=== PATIENT | female | born 1955 | race Hispanic/Latino ===

== ENCOUNTER 2017-07-23 09:35 | Inpatient (IN) | payer BC ==
[~2017-07-23] VITALS: Ht 147.3 cm; Wt 65.0 kg
[2017-07-23] VITALS (9 sets, daily range): BP systolic 99–127; BP diastolic 63–72
[2017-07-23] MEDS ORDERED: PHENYLEPHRINE HCL 10 MG/ML 1ML VIAL IV ONE (12:00)
[2017-07-23] MEDS ORDERED: CALCIUM CHLORIDE 100 MG/ML 10 ML SYG IVP ONE (12:00)
[2017-07-23] MEDS ORDERED: ALBUMIN (HUMAN) 25% 50 ML IV ONE (12:00)
[2017-07-23] MEDS ORDERED: HEPARIN SODIUM 1000UNIT/ML 10ML VIAL IV ONE (12:00)
[2017-07-23] MEDS ORDERED: MANNITOL 25% 50ML VIAL IV ONE (12:00)
[2017-07-23] MEDS ORDERED: SODIUM BICARB 8.4% 50ML SYRINGE IVP ONE (12:00)
[2017-07-23] MEDS ORDERED: HEPARIN SODIUM 10000 UNIT/ML 1ML VIAL IJ ONE (12:00)
[2017-07-23] MEDS ORDERED: NITROGLYCERIN 50 MG/D5% WATER 1 BOT ONE (12:52)
[2017-07-23] MEDS ORDERED: METF500T6 PO (12:59)
[2017-07-23] MEDS ORDERED: LOSA100T29 PO (12:59)
[2017-07-23] MEDS ORDERED: ATOR40TA69 PO (12:59)
[2017-07-23] MEDS ORDERED: ESOM40CA54 PO (12:59)
[2017-07-23] MEDS ORDERED: LORA10CA9 PO (12:59)
[2017-07-23] MEDS ORDERED: LIDOCAINE HCL 2% 20ML ONE (13:29)
[2017-07-23] MEDS ORDERED: IOPAMIDOL-370 75 ML VIAL IV ONE (13:29)
[2017-07-23] MEDS ORDERED: IOPAMIDOL-370 100 ML VIAL IV ONE (13:29)
[2017-07-23] MEDS ORDERED: NITROGLYCERIN 0.4 MG SL TAB SL PRN (13:30)
[2017-07-23] MEDS ORDERED: ALBU8.5H8 IH (14:08)
[2017-07-23] MEDS ORDERED: BUDE10.2 IH ×2 (14:08)
[2017-07-23] MEDS ORDERED: ACETAMINOPHEN 325 MG TAB ONE (15:58)
[2017-07-23] MEDS ORDERED: ALPRAZOLAM 0.25 MG TABLET PO PRN (17:15)
[2017-07-23 17:33] LABS: BASOPHILS % (AUTO) 0.8 % (0.0-5.0); EOSINOPHILS % (AUTO) 1.6 % (0.0-8.0); HEMATOCRIT 35.9 % (36-48); LYMPHOCYTES % (AUTO) 27.6 % (21.0-51.0); MEAN CORPUSCULAR HEMOGLOBIN 30.3 pg (27.0-33.0); MEAN CORPUSCULAR HGB CONC 34.3 g/dL (32.0-36.0); MEAN CORPUSCULAR VOLUME 88.3 fL (79-99); MONOCYTES % (AUTO) 6.4 % (3.0-13.0); NEUTROPHILS % (AUTO) 63.6 % (40.0-77.0); PLATELET COUNT (AUTO) 304 K/uL (130-400); RED BLOOD CELL COUNT(AUTO) 4.06 MIL/uL (4.00-5.50)
[2017-07-23 17:42] LABS: CREATININE 0.7 mg/dL (0.5-1.5); POTASSIUM 3.7 mmol/L (3.5-5.1)
[2017-07-23 17:45] LABS: INR 0.93 (0.85-1.15); PARTIAL THROMBOPLASTIN TIME 23.7 SEC (26.3-35.5); PROTHROMBIN TIME 9.8 SEC (9.6-11.6)
[2017-07-23 17:47] LABS: HEMOGLOBIN A1C 7.5 % (4.0-6.0)
[2017-07-23] MEDS: LISINOPRIL 2.5 MG TABLET PO SCH (19:56)
[2017-07-23] MEDS: METOPROLOL TARTRATE 25 MG TAB PO SCH (19:57)
[2017-07-23] MEDS ORDERED: ATORVASTATIN CALCIUM 20 MG TABLET PO SCH (21:00)
[2017-07-24] VITALS (9 sets, daily range): BP systolic 105–179; BP diastolic 57–87
[2017-07-24] MEDS: SODIUM CHLORIDE 0.9% 1000ML 1,000 ML IV SCH ×2 (00:23→11:05)
[2017-07-24] MEDS ORDERED: MORPHINE SULFATE 2 MG/ML 1ML SYG IV PRN (00:30)
[2017-07-24] MEDS ORDERED: HYDRALAZINE HCL 20 MG/ML VIAL IV PRN (00:30)
[2017-07-24] MEDS ORDERED: ONDANSETRON HCL 4 MG/2 ML VIAL IV PRN ×2 (00:30→14:00)
[2017-07-24] MEDS ORDERED: ACETAMINOPHEN 325 MG TAB PO PRN (00:30)
[2017-07-24] MEDS ORDERED: ACETAMINOPHEN 325 MG TAB ONE (00:31)
[2017-07-24] MEDS ORDERED: SODIUM CHLORIDE 0.9% 1000ML 1,000 ML IV ONE (00:31)
[2017-07-24 04:42] LABS: HEMATOCRIT 34.1 % (36-48); MEAN CORPUSCULAR HGB CONC 34.9 g/dL (32.0-36.0); MEAN CORPUSCULAR VOLUME 88.9 fL (79-99); PLATELET COUNT (AUTO) 298 K/uL (130-400); RED BLOOD CELL COUNT(AUTO) 3.83 MIL/uL (4.00-5.50); RED CELL DISTRIBUTION WIDTH 13.2 % (11.0-15.5); WHITE BLOOD COUNT (AUTO) 8.2 K/uL (4.8-10.8)
[2017-07-24 04:45] LABS: CREATININE 0.7 mg/dL (0.5-1.5); POTASSIUM 3.9 mmol/L (3.5-5.1)
[2017-07-24] MEDS ORDERED: ISOSORBIDE MONO 30MG TAB SR PO SCH (09:00)
[2017-07-24] MEDS ORDERED: ASPIRIN 81MG TAB.CHEW PO SCH (09:00)
[2017-07-24] MEDS: METOPROLOL TARTRATE 25 MG TAB PO SCH (09:30)
[2017-07-24] MEDS: LISINOPRIL 2.5 MG TABLET PO SCH (09:30)
[2017-07-24 09:38] LABS: ABG BASE EXCESS 0.2 mmol/L (-2.0-3.0); ABG HCO3 23.2 mmol/L (21.0-28.0); ABG OXYGEN SATURATION 97.7 % (95.0-99.0); ABG PCO2 33 mmHg (32-45)
[2017-07-24] MEDS ORDERED: BACITRACIN 50,000 UNIT VIAL ONE (09:46)
[2017-07-24] MEDS ORDERED: OCTYL 2-CYANOACRYLATE 1 EACH TP ONE (09:46)
[2017-07-24] MEDS ORDERED: PAPAVERINE HCL 30 MG/ML 2ML VIAL ONE (09:46)
[2017-07-24] MEDS ORDERED: CEFUROXIME 1.5GM+NS 100ML 100 ML IV SCH ×2 (10:15→22:00)
[2017-07-24] MEDS ORDERED: WATER FOR INJECTION,STERILE 20 ML VIAL IJ SCH ×2 (10:15→17:00)
[2017-07-24] MEDS: CEFUROXIME SODIUM 1.5 GM VIAL IVP SCH ×3 (10:15→22:02)
[2017-07-24] MEDS ORDERED: ROCURONIUM BROMIDE 10MG/1ML 5ML VL ONE ×4 (10:22→17:16)
[2017-07-24] MEDS ORDERED: EPINEPHRINE 1 MG/ML AMPULE ONE ×3 (10:22→18:33)
[2017-07-24] MEDS ORDERED: GLYCOPYRROLATE 0.2 MG/ML 5 ML VIAL ONE (10:22)
[2017-07-24] MEDS ORDERED: MILRINONE-D5W 20 MG/100 ML 0 ML IV ONE (10:22)
[2017-07-24] MEDS ORDERED: PROTAMINE SULFATE 10 MG/ML 25ML VIAL IV ONE (10:22)
[2017-07-24] MEDS ORDERED: PROPOFOL 10 MG/ML 20ML VIAL IV ONE (10:22)
[2017-07-24] MEDS ORDERED: LIDOCAINE PF 2% 5ML ABBOJECT ONE ×4 (10:22→15:07)
[2017-07-24] MEDS ORDERED: NOREPINEPHRINE BITARTRATE 1 MG/1 ML ML IV ONE ×3 (10:22→18:12)
[2017-07-24] MEDS ORDERED: FENTANYL CITRATE PF 50 MCG/1 ML 20ML VIAL IJ ONE (10:22)
[2017-07-24] MEDS ORDERED: CALCIUM CHLORIDE 100 MG/ML 10 ML SYG IVP ONE ×11 (10:22→21:38)
[2017-07-24] MEDS ORDERED: AMIODARONE HCL 900MG/18ML IV ONE ×2 (10:22→15:08)
[2017-07-24] MEDS ORDERED: AMINOCAPROIC ACID 250 MG/ML 20 ML VIAL IV ONE (10:22)
[2017-07-24] MEDS ORDERED: HEPARIN SODIUM 1000UNIT/ML 10ML VIAL ONE ×3 (10:22→15:07)
[2017-07-24] MEDS ORDERED: ESMOLOL HCL 10 MG/ML 10 ML VIAL ONE ×2 (10:22→15:07)
[2017-07-24] MEDS ORDERED: MIDAZOLAM HCL 1 MG/ML 5ML VIAL ONE ×2 (10:23→14:48)
[2017-07-24] MEDS ORDERED: NITROGLYCERIN 50 MG/D5% WATER 1 BOT ONE (10:35)
[2017-07-24] MEDS ORDERED: THROMBIN-JMI 5000 UNIT/VIAL TP ONE (11:10)
[2017-07-24 11:45] LABS: ABG BASE EXCESS -1.4 mmol/L (-2.0-3.0); ABG HCO3 22.1 mmol/L (21.0-28.0); ABG PCO2 33 mmHg (32-45)
[2017-07-24] MEDS ORDERED: SODIUM BICARB 50MEQ 50ML VIAL ONE ×11 (12:19→22:49)
[2017-07-24 12:46] LABS: ABG BASE EXCESS 9.2 mmol/L (-2.0-3.0); ABG HCO3 31.2 mmol/L (21.0-28.0); ABG OXYGEN SATURATION 98.3 % (95.0-99.0); ABG PCO2 33 mmHg (32-45)
[2017-07-24 13:00] LABS: ABG HCO3 22.9 mmol/L (21.0-28.0); ABG PCO2 30 mmHg (32-45)
[2017-07-24 13:36] LABS: ABG BASE EXCESS -5.4 mmol/L (-2.0-3.0); ABG HCO3 17.9 mmol/L (21.0-28.0); ABG OXYGEN SATURATION 98.5 % (95.0-99.0); ABG PCO2 28 mmHg (32-45)
[2017-07-24] MEDS ORDERED: SODIUM CHLORIDE 0.9% 250 ML IV PRN (14:00)
[2017-07-24] MEDS ORDERED: MORPHINE SULFATE 4 MG/1ML SYG IV PRN (14:00)
[2017-07-24] MEDS ORDERED: ACETAMINOPHEN 650 MG SUPPOSITORY RC PRN (14:00)
[2017-07-24] MEDS ORDERED: NICARDIPINE HCL 100 MG in SODIUM CHLORIDE 0.9% 60 ML IV PRN (14:00)
[2017-07-24] MEDS ORDERED: SODIUM CHLORIDE 0.9% 10 ML VIAL IVP PRN (14:00)
[2017-07-24] MEDS ORDERED: NOREPINEPHRINE 4MG/NS 250ML 250 ML IV PRN (14:00)
[2017-07-24] MEDS ORDERED: PROPOFOL 1000 MG/100 ML 100 ML IV PRN (14:00)
[2017-07-24] MEDS ORDERED: AMINOCAPROIC ACID 15,000 MG in SODIUM CHLORIDE 0.9% 250 ML IV SCH (14:00)
[2017-07-24] MEDS ORDERED: NITROGLYCERIN 50 MG/D5% WATER 250 BOT IV SCH (14:00)
[2017-07-24] MEDS ORDERED: INSULIN REGULAR, HUMAN 3ML 100 UNIT in SODIUM CHLORIDE 0.9% 99 ML IV SCH ×2 (14:00)
[2017-07-24] MEDS ORDERED: SODIUM CHLORIDE 0.9% 1000ML 1,000 ML IV SCH (14:00)
[2017-07-24] MEDS ORDERED: EPINEPHRINE 2 MG in SODIUM CHLORIDE 0.9% 250 ML IV PRN (14:00)
[2017-07-24] MEDS ORDERED: ALBUMIN (HUMAN) 5% 250 ML IV PRN (14:00)
[2017-07-24] MEDS ORDERED: GLUCAGON 1MG KIT 1 MG ML IM PRN (14:00)
[2017-07-24] MEDS ORDERED: POTASSIUM PHOS 15 mMOL+NS250ML 250 ML IV PRN (14:00)
[2017-07-24 14:22] LABS: ABG BASE EXCESS -0.8 mmol/L (-2.0-3.0); ABG HCO3 21.9 mmol/L (21.0-28.0); ABG OXYGEN SATURATION 98.4 % (95.0-99.0); ABG PCO2 30 mmHg (32-45)
[2017-07-24] MEDS ORDERED: ATROPINE SULFATE 0.1 MG/ML 10 ML SYG IVP ONE (14:38)
[2017-07-24] MEDS ORDERED: SODIUM BICARB 8.4% 50ML SYRINGE ONE ×2 (14:44→16:29)
[2017-07-24 14:45] LABS: ABG BASE EXCESS -4.8 mmol/L (-2.0-3.0); ABG HCO3 18.3 mmol/L (21.0-28.0); ABG OXYGEN SATURATION 97.8 % (95.0-99.0); ABG PCO2 28 mmHg (32-45)
[2017-07-24] MEDS ORDERED: EPINEPHRINE 1 MG/ML 30ML VIAL IJ ONE (14:47)
[2017-07-24] MEDS ORDERED: CEFUROXIME SODIUM 1.5 GM VIAL ONE (14:50)
[2017-07-24 14:59] LABS: ABG BASE EXCESS -0.1 mmol/L (-2.0-3.0); ABG HCO3 20.4 mmol/L (21.0-28.0); ABG PCO2 19 mmHg (32-45)
[2017-07-24 15:50] LABS: ABG BASE EXCESS -9.6 mmol/L (-2.0-3.0); ABG HCO3 16.1 mmol/L (21.0-28.0); ABG OXYGEN SATURATION 98.6 % (95.0-99.0); ABG PCO2 35 mmHg (32-45)
[2017-07-24 15:57] LABS: ABG BASE EXCESS 2.8 mmol/L (-2.0-3.0); ABG OXYGEN SATURATION 98.3 % (95.0-99.0); ABG PCO2 35 mmHg (32-45)
[2017-07-24] MEDS ORDERED: MAGNESIUM SULFATE 1 GM/2 ML VIAL ONE (15:59)
[2017-07-24] MEDS ORDERED: AMIODARONE HCL 900 MG in DEXTROSE 5%-WATER 500 ML IV SCH (16:00)
[2017-07-24] MEDS ORDERED: ALBUMIN (HUMAN) 5% 250 ML IV ONE ×2 (16:12→17:04)
[2017-07-24] MEDS ORDERED: LIDOCAINE 2G/250ML 250 ML IV ONE (16:15)
[2017-07-24 16:25] LABS: ABG BASE EXCESS -4.9 mmol/L (-2.0-3.0); ABG HCO3 18.9 mmol/L (21.0-28.0); ABG OXYGEN SATURATION 98.3 % (95.0-99.0); ABG PCO2 31 mmHg (32-45)
[2017-07-24 16:55] LABS: ABG BASE EXCESS 7.4 mmol/L (-2.0-3.0); ABG HCO3 31.3 mmol/L (21.0-28.0); ABG OXYGEN SATURATION 98.4 % (95.0-99.0); ABG PCO2 41 mmHg (32-45)
[2017-07-24] MEDS ORDERED: PIPERACILLIN SODIUM/TAZOBACTAM 3.375 GM VIAL IV SCH (17:00)
[2017-07-24] MEDS ORDERED: EPHEDRINE SULFATE 50 MG/ML AMPULE ONE (17:04)
[2017-07-24] MEDS ORDERED: FUROSEMIDE 10 MG/ML 4ML VIAL ONE (17:12)
[2017-07-24 17:45] LABS: ABG HCO3 18.9 mmol/L (21.0-28.0); ABG OXYGEN SATURATION 87.3 % (95.0-99.0); ABG PCO2 40 mmHg (32-45)
[2017-07-24] MEDS ORDERED: VASOPRESSIN 125 UNITS in SODIUM CHLORIDE 0.9% 250 ML IV PRN (17:45)
[2017-07-24] MEDS: POTASSIUM CHLORIDE 20MEQ/100ML 100 ML IV PRN ×5 (18:02→23:44)
[2017-07-24 18:14] LABS: HEMATOCRIT 25.1 % (36-48); MEAN CORPUSCULAR HEMOGLOBIN 30.1 pg (27.0-33.0); MEAN CORPUSCULAR HGB CONC 34.2 g/dL (32.0-36.0); NUCLEATED RED BLOOD CELLS 0.1 % (0.0-0.19); RED BLOOD CELL COUNT(AUTO) 2.85 MIL/uL (4.00-5.50); RED CELL DISTRIBUTION WIDTH 13.3 % (11.0-15.5); WHITE BLOOD COUNT (AUTO) 22.8 K/uL (4.8-10.8)
[2017-07-24 18:18] LABS: CREATININE 0.8 mg/dL (0.5-1.5); GLOMERULAR FILTR. RATE CALC 77 mL/min (>60); GLUCOSE,RANDOM 116 mg/dL (70-105); PHOSPHORUS 5.6 mg/dL (2.5-4.9); POTASSIUM 3.2 mmol/L (3.5-5.1); UREA NITROGEN, BLOOD 11 mg/dL (7-18)
[2017-07-24 18:22] LABS: ABG BASE EXCESS -4.2 mmol/L (-2.0-3.0); ABG HCO3 20.9 mmol/L (21.0-28.0); ABG OXYGEN SATURATION 82.7 % (95.0-99.0); ABG PCO2 38 mmHg (32-45)
[2017-07-24 18:23] LABS: SODIUM SERUM > 185 mmol/L (136-145)
[2017-07-24 18:26] LABS: CHLORIDE 126 mmol/L (101-111)
[2017-07-24 18:38] LABS: CARBON DIOXIDE 64 mmol/L (21-32)
[2017-07-24] MEDS ORDERED: CALCIUM CHLORIDE 100 MG/ML 10 ML SYG IVP STA (18:43)
[2017-07-24 18:47] LABS: ABG BASE EXCESS 7.2 mmol/L (-2.0-3.0); ABG HCO3 32.1 mmol/L (21.0-28.0); ABG PCO2 49 mmHg (32-45)
[2017-07-24 18:54] LABS: PLATELET COUNT (AUTO) 58 K/uL (130-400)
[2017-07-24 19:00] LABS: ABG BASE EXCESS 1.1 mmol/L (-2.0-3.0); ABG HCO3 26.7 mmol/L (21.0-28.0); ABG PCO2 49 mmHg (32-45)
[2017-07-24] MEDS: SODIUM BICARB 8.4% 50ML SYRINGE IV PRN ×3 (19:12→19:40)
[2017-07-24] MEDS ORDERED: EPHEDRINE-NS PF 50MG/5ML SYRINGE IV STA (19:16)
[2017-07-24 19:25] LABS: ABG BASE EXCESS -2.1 mmol/L (-2.0-3.0); ABG HCO3 21.5 mmol/L (21.0-28.0); ABG OXYGEN SATURATION 98.3 % (95.0-99.0); ABG PCO2 31 mmHg (32-45)
[2017-07-24 20:12] LABS: ABG BASE EXCESS -1.7 mmol/L (-2.0-3.0); ABG PCO2 27 mmHg (32-45)
[2017-07-24] MEDS: SODIUM CHLORIDE 0.9% 500ML 500 ML IV SCH (20:27)
[2017-07-24 20:48] LABS: ABG BASE EXCESS -1.7 mmol/L (-2.0-3.0); ABG HCO3 21.9 mmol/L (21.0-28.0); ABG OXYGEN SATURATION 93.7 % (95.0-99.0); ABG PCO2 33 mmHg (32-45)
[2017-07-24 20:55] LABS: INR 1.61 (0.85-1.15); PARTIAL THROMBOPLASTIN TIME 50.5 SEC (26.3-35.5); PROTHROMBIN TIME 16.7 SEC (9.6-11.6)
[2017-07-24] MEDS: EPINEPHRINE 8 MG in SODIUM CHLORIDE 0.9% 250 ML IV PRN (21:14)
[2017-07-24] MEDS ORDERED: HYDROCORTISONE SOD SUCCINATE 100 MG/2 ML VIAL IV SCH (21:30)
[2017-07-24] MEDS ORDERED: SODIUM BICARB 8.4% 50ML SYRING 200 MEQ in DEXTROSE 5%-WATER 950 ML IVP SCH (21:30)
[2017-07-24] MEDS ORDERED: PHARMACY COMMUNICATION MISC SCH ×2 (21:30→21:45)
[2017-07-24 21:37] LABS: ABG BASE EXCESS 0.6 mmol/L (-2.0-3.0); ABG HCO3 23.6 mmol/L (21.0-28.0); ABG PCO2 32 mmHg (32-45)
[2017-07-24] MEDS ORDERED: SODIUM CHLORIDE 0.9% IVP SCH (22:15)
[2017-07-24] MEDS ORDERED: CALCIUM CHLORIDE IVP SCH (22:15)
[2017-07-24 22:48] LABS: ABG BASE EXCESS -1.6 mmol/L (-2.0-3.0); ABG HCO3 21.8 mmol/L (21.0-28.0); ABG PCO2 32 mmHg (32-45)
[2017-07-24 23:24] LABS: ABG HCO3 26.6 mmol/L (21.0-28.0); ABG OXYGEN SATURATION 97.8 % (95.0-99.0); ABG PCO2 31 mmHg (32-45)
[2017-07-25] VITALS (24 sets, daily range): BP systolic 75–147; BP diastolic 48–81
[2017-07-25 00:03] LABS: ABG BASE EXCESS 0.4 mmol/L (-2.0-3.0); ABG HCO3 23.5 mmol/L (21.0-28.0); ABG OXYGEN SATURATION 97.3 % (95.0-99.0); ABG PCO2 31 mmHg (32-45)
[2017-07-25 00:30] LABS: MEAN CORPUSCULAR HEMOGLOBIN 28.6 pg (27.0-33.0); MEAN CORPUSCULAR VOLUME 84.1 fL (79-99); NUCLEATED RED BLOOD CELLS 0.2 % (0.0-0.19); PLATELET COUNT (AUTO) 85 K/uL (130-400); RED BLOOD CELL COUNT(AUTO) 2.21 MIL/uL (4.00-5.50); RED CELL DISTRIBUTION WIDTH 15.1 % (11.0-15.5); WHITE BLOOD COUNT (AUTO) 13.9 K/uL (4.8-10.8)
[2017-07-25 00:34] LABS: ABG BASE EXCESS -0.7 mmol/L (-2.0-3.0); ABG HCO3 22.9 mmol/L (21.0-28.0); ABG OXYGEN SATURATION 96.9 % (95.0-99.0); ABG PCO2 32 mmHg (32-45)
[2017-07-25] MEDS: SODIUM BICARB 8.4% 50ML SYRINGE IV PRN ×5 (00:34→14:22)
[2017-07-25 00:35] LABS: HEMATOCRIT 18.6 % (36-48)
[2017-07-25 00:40] LABS: CREATININE 1.6 mg/dL (0.5-1.5); INR 1.39 (0.85-1.15); PARTIAL THROMBOPLASTIN TIME 47.3 SEC (26.3-35.5); POTASSIUM 3.8 mmol/L (3.5-5.1); PROTHROMBIN TIME 14.5 SEC (9.6-11.6)
[2017-07-25 01:10] LABS: ABG BASE EXCESS 0.8 mmol/L (-2.0-3.0); ABG HCO3 24.2 mmol/L (21.0-28.0); ABG OXYGEN SATURATION 97.1 % (95.0-99.0); ABG PCO2 33 mmHg (32-45)
[2017-07-25] MEDS: POTASSIUM CHLORIDE 20MEQ/100ML 100 ML IV PRN ×8 (01:17→16:06)
[2017-07-25] MEDS: NOREPINEPHRINE BITARTRATE 8 MG in SODIUM CHLORIDE 0.9% 250 ML IV SCH (01:51)
[2017-07-25 02:04] LABS: ABG BASE EXCESS -1.6 mmol/L (-2.0-3.0); ABG HCO3 22.2 mmol/L (21.0-28.0); ABG OXYGEN SATURATION 97.4 % (95.0-99.0); ABG PCO2 34 mmHg (32-45)
[2017-07-25 03:02] LABS: ABG BASE EXCESS 1.6 mmol/L (-2.0-3.0); ABG HCO3 24.8 mmol/L (21.0-28.0); ABG OXYGEN SATURATION 97.9 % (95.0-99.0); ABG PCO2 33 mmHg (32-45)
[2017-07-25 03:55] LABS: ABG BASE EXCESS -1.2 mmol/L (-2.0-3.0); ABG HCO3 22.1 mmol/L (21.0-28.0); ABG OXYGEN SATURATION 97.5 % (95.0-99.0); ABG PCO2 31 mmHg (32-45)
[2017-07-25] MEDS ORDERED: HYDROCORTISONE SOD SUCCINATE 100 MG/2 ML VIAL IV SCH ×2 (04:00→16:15)
[2017-07-25 05:05] LABS: ABG BASE EXCESS -0.8 mmol/L (-2.0-3.0); ABG HCO3 22.5 mmol/L (21.0-28.0); ABG OXYGEN SATURATION 97.8 % (95.0-99.0); ABG PCO2 32 mmHg (32-45)
[2017-07-25 05:22] LABS: HEMATOCRIT 22.8 % (36-48); MEAN CORPUSCULAR HEMOGLOBIN 29.6 pg (27.0-33.0); MEAN CORPUSCULAR VOLUME 86.9 fL (79-99); NUCLEATED RED BLOOD CELLS 0.1 % (0.0-0.19); PLATELET COUNT (AUTO) 320 K/uL (130-400); RED BLOOD CELL COUNT(AUTO) 2.63 MIL/uL (4.00-5.50); WHITE BLOOD COUNT (AUTO) 12.5 K/uL (4.8-10.8)
[2017-07-25 05:31] LABS: INR 1.42 (0.85-1.15); PARTIAL THROMBOPLASTIN TIME 52.6 SEC (26.3-35.5); PROTHROMBIN TIME 14.8 SEC (9.6-11.6)
[2017-07-25 05:50] LABS: ALBUMIN 2.3 g/dL (3.5-5.0); BILIRUBIN,TOTAL 1.2 mg/dL (0.2-1.0); CREATININE 1.9 mg/dL (0.5-1.5); MAGNESIUM 1.9 mg/dL (1.80-2.40); PHOSPHORUS 2.2 mg/dL (2.5-4.9); TOTAL PROTEIN, SERUM 4.2 g/dL (6.0-8.3)
[2017-07-25] MEDS: MAGNESIUM 2GM PREMIX 50ML 50 ML IV PRN (05:57)
[2017-07-25 06:01] LABS: BAND NEUTROPHILS % (MANUAL) 31 % (0-2); LYMPHOCYTES % (MANUAL) 10 % (22-44); MAN.DIFF COMMENT-IMPRESSION MANUAL DIFFERENTIAL; METAMYELOCYTES % 2 % (0-0); MONOCYTES % (MANUAL) 2 % (2-9); SEGMENTED NEUTROPHILS % 55 % (40-70)
[2017-07-25 06:01] LABS: ABG BASE EXCESS 1.6 mmol/L (-2.0-3.0); ABG HCO3 24.1 mmol/L (21.0-28.0); ABG OXYGEN SATURATION 97.7 % (95.0-99.0); ABG PCO2 30 mmHg (32-45)
[2017-07-25 06:02] LABS: PLATELET MORPHOLOGY COMMENT ADEQUATE
[2017-07-25] MEDS: SODIUM CHLORIDE 0.9% 500ML 500 ML IV SCH (06:10)
[2017-07-25] MEDS ORDERED: PHYTONADIONE 10 MG in SODIUM CHLORIDE 0.9% 50 ML IV SCH (06:45)
[2017-07-25] MEDS ORDERED: PHARMACY COMMUNICATION MISC SCH ×3 (07:00→19:30)
[2017-07-25 07:07] LABS: ABG BASE EXCESS -0.3 mmol/L (-2.0-3.0); ABG HCO3 22.1 mmol/L (21.0-28.0); ABG OXYGEN SATURATION 97.5 % (95.0-99.0); ABG PCO2 28 mmHg (32-45)
[2017-07-25] MEDS ORDERED: SODIUM BICARB 50MEQ 50ML VIAL ONE ×2 (07:14→12:44)
[2017-07-25] MEDS ORDERED: LIDOCAINE 2G/250ML 0 ML IV ONE (07:21)
[2017-07-25 08:00] LABS: ABG BASE EXCESS 1.6 mmol/L (-2.0-3.0); ABG HCO3 25.5 mmol/L (21.0-28.0); ABG OXYGEN SATURATION 95.7 % (95.0-99.0); ABG PCO2 36 mmHg (32-45)
[2017-07-25] MEDS: CALCIUM CHLORIDE 100 MG/ML 10 ML SYG IVP SCH ×2 (08:37→16:06)
[2017-07-25 08:58] LABS: ABG BASE EXCESS 0.5 mmol/L (-2.0-3.0); ABG HCO3 23.6 mmol/L (21.0-28.0); ABG OXYGEN SATURATION 97.7 % (95.0-99.0); ABG PCO2 31 mmHg (32-45)
[2017-07-25] MEDS ORDERED: PANTOPRAZOLE SODIUM 40 MG TABLET.DR PO SCH (09:00)
[2017-07-25] MEDS ORDERED: PANTOPRAZOLE 40 MG/VIAL IVP SCH (09:00)
[2017-07-25 09:07] LABS: MEAN CORPUSCULAR HEMOGLOBIN 33.1 pg (27.0-33.0); MEAN CORPUSCULAR HGB CONC 35.6 g/dL (32.0-36.0); NUCLEATED RED BLOOD CELLS 0.4 % (0.0-0.19); PLATELET COUNT (AUTO) 199 K/uL (130-400); RED BLOOD CELL COUNT(AUTO) 1.84 MIL/uL (4.00-5.50); RED CELL DISTRIBUTION WIDTH 14.5 % (11.0-15.5); WHITE BLOOD COUNT (AUTO) 9.7 K/uL (4.8-10.8)
[2017-07-25 09:12] LABS: HEMATOCRIT 17.1 % (36-48)
[2017-07-25] MEDS: SUCRALFATE 1 GM/10 ML GT SCH ×3 (09:18→20:09)
[2017-07-25] MEDS: PANTOPRAZOLE 40 MG/VIAL IVP SCH (09:18)
[2017-07-25 10:37] LABS: ABG BASE EXCESS 0.3 mmol/L (-2.0-3.0); ABG HCO3 21.3 mmol/L (21.0-28.0); ABG PCO2 23 mmHg (32-45)
[2017-07-25 11:58] LABS: ABG BASE EXCESS -1.2 mmol/L (-2.0-3.0); ABG HCO3 20.6 mmol/L (21.0-28.0); ABG OXYGEN SATURATION 97.9 % (95.0-99.0); ABG PCO2 26 mmHg (32-45)
[2017-07-25] MEDS: CEFUROXIME SODIUM 1.5 GM VIAL IVP SCH ×2 (11:59→22:28)
[2017-07-25 12:49] LABS: INR 1.47 (0.85-1.15); PARTIAL THROMBOPLASTIN TIME 40.2 SEC (26.3-35.5); PROTHROMBIN TIME 15.3 SEC (9.6-11.6)
[2017-07-25 14:20] LABS: ABG BASE EXCESS 5.2 mmol/L (-2.0-3.0); ABG HCO3 28.1 mmol/L (21.0-28.0); ABG OXYGEN SATURATION 97.8 % (95.0-99.0); ABG PCO2 35 mmHg (32-45)
[2017-07-25] MEDS: EPINEPHRINE 8 MG in SODIUM CHLORIDE 0.9% 250 ML IV PRN (15:11)
[2017-07-25 16:02] LABS: ABG BASE EXCESS 5.9 mmol/L (-2.0-3.0); ABG HCO3 28.3 mmol/L (21.0-28.0); ABG OXYGEN SATURATION 97.7 % (95.0-99.0); ABG PCO2 33 mmHg (32-45)
[2017-07-25] MEDS ORDERED: ASPIRIN 81MG TAB.CHEW PO SCH (16:30)
[2017-07-25] MEDS: MORPHINE SULFATE 2 MG/ML 1ML SYG IV PRN (17:03)
[2017-07-25 17:12] LABS: ABG BASE EXCESS 7.7 mmol/L (-2.0-3.0); ABG HCO3 32.1 mmol/L (21.0-28.0); ABG OXYGEN SATURATION 95.8 % (95.0-99.0); ABG PCO2 45 mmHg (32-45)
[2017-07-25] MEDS ORDERED: ALBUMIN (HUMAN) 5% 250 ML IV ONE (17:36)
[2017-07-25 18:52] LABS: ABG BASE EXCESS 8.3 mmol/L (-2.0-3.0); ABG HCO3 32.9 mmol/L (21.0-28.0); ABG OXYGEN SATURATION 96.7 % (95.0-99.0); ABG PCO2 47 mmHg (32-45)
[2017-07-25] MEDS ORDERED: FUROSEMIDE 10 MG/ML 4ML VIAL IV SCH (19:30)
[2017-07-25] MEDS: DEXTROSE 50%-WATER 50 ML DISP.SYRIN IV PRN ×2 (19:55→19:58)
[2017-07-25] MEDS: FUROSEMIDE 100 MG in SODIUM CHLORIDE 0.9% 90 ML IV SCH (20:24)
[2017-07-25 20:54] LABS: ABG HCO3 32.7 mmol/L (21.0-28.0); ABG OXYGEN SATURATION 96.7 % (95.0-99.0); ABG PCO2 41 mmHg (32-45)
[2017-07-25 22:22] LABS: ABG BASE EXCESS 6.3 mmol/L (-2.0-3.0); ABG HCO3 29.9 mmol/L (21.0-28.0); ABG OXYGEN SATURATION 97.1 % (95.0-99.0); ABG PCO2 39 mmHg (32-45)
[2017-07-25] MEDS: HYDROCORTISONE SOD SUCCINATE 100 MG/2 ML VIAL IV SCH (22:28)
[2017-07-25 23:04] LABS: MEAN CORPUSCULAR HEMOGLOBIN 29.9 pg (27.0-33.0); MEAN CORPUSCULAR VOLUME 85.4 fL (79-99); NUCLEATED RED BLOOD CELLS 0.7 % (0.0-0.19); PLATELET COUNT (AUTO) 78 K/uL (130-400); RED BLOOD CELL COUNT(AUTO) 2.81 MIL/uL (4.00-5.50); RED CELL DISTRIBUTION WIDTH 14.4 % (11.0-15.5); WHITE BLOOD COUNT (AUTO) 17.9 K/uL (4.8-10.8)
[2017-07-25 23:10] LABS: INR 1.48 (0.85-1.15); PARTIAL THROMBOPLASTIN TIME 28.7 SEC (26.3-35.5); PROTHROMBIN TIME 15.4 SEC (9.6-11.6)
[2017-07-25 23:20] LABS: ABG BASE EXCESS 5.3 mmol/L (-2.0-3.0); ABG HCO3 29.2 mmol/L (21.0-28.0); ABG OXYGEN SATURATION 97.5 % (95.0-99.0); ABG PCO2 40 mmHg (32-45)
[2017-07-25 23:38] LABS: BAND NEUTROPHILS % (MANUAL) 33 % (0-2); LYMPHOCYTES % (MANUAL) 11 % (22-44); METAMYELOCYTES % 5 % (0-0); MONOCYTES % (MANUAL) 1 % (2-9); SEGMENTED NEUTROPHILS % 50 % (40-70)
[2017-07-25 23:39] LABS: MAN.DIFF COMMENT-IMPRESSION MANUAL DIFFERENTIAL; PLATELET MORPHOLOGY COMMENT DECREASED
[2017-07-25] MEDS: ACETAMINOPHEN 325 MG TAB PO PRN (23:44)
[2017-07-26] VITALS (28 sets, daily range): BP systolic 96–162; BP diastolic 39–86
[2017-07-26] MEDS: SUCRALFATE 1 GM/10 ML GT SCH ×4 (01:04→19:57)
[2017-07-26 01:14] LABS: ABG BASE EXCESS 5.6 mmol/L (-2.0-3.0); ABG OXYGEN SATURATION 97.5 % (95.0-99.0); ABG PCO2 38 mmHg (32-45)
[2017-07-26] MEDS: MORPHINE SULFATE 2 MG/ML 1ML SYG IV PRN (01:19)
[2017-07-26 03:28] LABS: ABG BASE EXCESS 6.1 mmol/L (-2.0-3.0); ABG HCO3 29.9 mmol/L (21.0-28.0); ABG PCO2 40 mmHg (32-45)
[2017-07-26] MEDS: EPINEPHRINE 8 MG in SODIUM CHLORIDE 0.9% 250 ML IV PRN (04:10)
[2017-07-26] MEDS: NOREPINEPHRINE BITARTRATE 8 MG in SODIUM CHLORIDE 0.9% 250 ML IV SCH ×2 (04:10→22:16)
[2017-07-26] MEDS: DEXTROSE 50%-WATER 50 ML DISP.SYRIN IV PRN ×2 (04:24→07:06)
[2017-07-26] MEDS: HYDROCORTISONE SOD SUCCINATE 100 MG/2 ML VIAL IV SCH ×2 (05:54→13:13)
[2017-07-26 05:55] LABS: HEMATOCRIT 28.4 % (36-48); MEAN CORPUSCULAR HGB CONC 34.9 g/dL (32.0-36.0); NUCLEATED RED BLOOD CELLS 1.3 % (0.0-0.19); PLATELET COUNT (AUTO) 164 K/uL (130-400); RED CELL DISTRIBUTION WIDTH 14.8 % (11.0-15.5); WHITE BLOOD COUNT (AUTO) 19.7 K/uL (4.8-10.8)
[2017-07-26 06:06] LABS: ABG BASE EXCESS 2.6 mmol/L (-2.0-3.0); ABG HCO3 26.5 mmol/L (21.0-28.0); ABG OXYGEN SATURATION 97.2 % (95.0-99.0); ABG PCO2 38 mmHg (32-45)
[2017-07-26 06:10] LABS: BAND NEUTROPHILS % (MANUAL) 43 % (0-2); LYMPHOCYTES % (MANUAL) 5 % (22-44); METAMYELOCYTES % 4 % (0-0); MONOCYTES % (MANUAL) 3 % (2-9); SEGMENTED NEUTROPHILS % 45 % (40-70)
[2017-07-26 06:11] LABS: MAN.DIFF COMMENT-IMPRESSION MANUAL DIFFERENTIAL; PLATELET MORPHOLOGY COMMENT ADEQUATE
[2017-07-26 06:16] LABS: B-TYPE NATRIURETIC PEPTIDE 1450 pg/mL (0-100)
[2017-07-26 06:28] LABS: ALBUMIN 2.6 g/dL (3.5-5.0); BILIRUBIN,TOTAL 1.7 mg/dL (0.2-1.0); CREATININE 2.8 mg/dL (0.5-1.5); PHOSPHORUS 6.9 mg/dL (2.5-4.9); POTASSIUM 5.9 mmol/L (3.5-5.1); TOTAL PROTEIN, SERUM 4.5 g/dL (6.0-8.3)
[2017-07-26] MEDS ORDERED: SODIUM POLYSTYRENE SULFONATE 15 GM/60 ML ML ONE (06:56)
[2017-07-26] MEDS ORDERED: ALBUTEROL SULFATE 0.083% 2.5 MG/3 ML INH IH SCH (07:00)
[2017-07-26] MEDS ORDERED: INSULIN HUMULIN R 100 UNIT/ML 3ML IV SCH (07:00)
[2017-07-26] MEDS ORDERED: ZOSYN 3.375GM+NS 50ML 50 ML IV SCH ×2 (07:00→21:00)
[2017-07-26] MEDS ORDERED: SODIUM POLYSTYRENE SULFONATE 15 GM/60 ML ML GT SCH (07:00)
[2017-07-26] MEDS ORDERED: INSULIN HUMULIN R 100 UNIT/ML 3ML ONE (07:03)
[2017-07-26] MEDS: ASPIRIN 81MG TAB.CHEW PO SCH (08:52)
[2017-07-26] MEDS: PANTOPRAZOLE 40 MG/VIAL IVP SCH (08:54)
[2017-07-26] MEDS ORDERED: PROPOFOL 10 MG/ML 20ML VIAL IV ONE (09:18)
[2017-07-26] MEDS ORDERED: VANCOMYCIN PROTOCOL PER PHARMACY IV SCH (09:30)
[2017-07-26 09:47] LABS: ABG BASE EXCESS -0.6 mmol/L (-2.0-3.0); ABG HCO3 23.9 mmol/L (21.0-28.0); ABG OXYGEN SATURATION 98.5 % (95.0-99.0); ABG PCO2 39 mmHg (32-45)
[2017-07-26] MEDS ORDERED: BACITRACIN 50,000 UNIT VIAL ONE (09:57)
[2017-07-26] MEDS ORDERED: HEPARIN SODIUM 1000UNIT/ML 10ML VIAL ONE ×2 (09:59→10:13)
[2017-07-26] MEDS ORDERED: THROMBIN-JMI 5000 UNIT/VIAL TP ONE (09:59)
[2017-07-26] MEDS ORDERED: MORPHINE SULFATE 10 MG/ML 1ML SYG ONE (10:30)
[2017-07-26] MEDS ORDERED: NEOSTIGMINE METHYLSULFATE 1MG/ML IV ONE (10:34)
[2017-07-26] MEDS ORDERED: GLYCOPYRROLATE 0.2 MG/ML 5 ML VIAL ONE (10:34)
[2017-07-26 10:54] LABS: ABG BASE EXCESS -2.7 mmol/L (-2.0-3.0); ABG HCO3 22.8 mmol/L (21.0-28.0); ABG OXYGEN SATURATION 95.1 % (95.0-99.0); ABG PCO2 42 mmHg (32-45)
[2017-07-26 11:46] LABS: ABG BASE EXCESS -2.2 mmol/L (-2.0-3.0); ABG HCO3 23.3 mmol/L (21.0-28.0); ABG OXYGEN SATURATION 86.3 % (95.0-99.0); ABG PCO2 42 mmHg (32-45)
[2017-07-26 11:57] LABS: HEMATOCRIT 44.4 % (36-48); MEAN CORPUSCULAR HEMOGLOBIN 30.2 pg (27.0-33.0); MEAN CORPUSCULAR HGB CONC 34.1 g/dL (32.0-36.0); MEAN CORPUSCULAR VOLUME 88.8 fL (79-99); NUCLEATED RED BLOOD CELLS 2.5 % (0.0-0.19); PLATELET COUNT (AUTO) 105 K/uL (130-400); WHITE BLOOD COUNT (AUTO) 20.6 K/uL (4.8-10.8)
[2017-07-26 12:05] LABS: POTASSIUM 5.4 mmol/L (3.5-5.1)
[2017-07-26] MEDS: FUROSEMIDE 100 MG in SODIUM CHLORIDE 0.9% 90 ML IV SCH ×2 (12:09→22:33)
[2017-07-26] MEDS: DEXTROSE 5%-WATER 1,000 ML IV SCH ×2 (12:20→22:16)
[2017-07-26] MEDS: MEROPENEM 500 MG VIAL IVP SCH ×2 (12:36→20:10)
[2017-07-26 13:05] LABS: LYMPHOCYTES % (MANUAL) 9 % (22-44); MONOCYTES % (MANUAL) 2 % (2-9); SEGMENTED NEUTROPHILS % 89 % (40-70)
[2017-07-26 13:07] LABS: MAN.DIFF COMMENT-IMPRESSION MANUAL DIFFERENTIAL; PLATELET MORPHOLOGY COMMENT DECREASED
[2017-07-26] MEDS: VANCOMYCIN 500MG+NS 100ML 100 ML IV SCH (13:13)
[2017-07-26 13:22] LABS: ABG BASE EXCESS -1.9 mmol/L (-2.0-3.0); ABG HCO3 23.2 mmol/L (21.0-28.0); ABG OXYGEN SATURATION 94.1 % (95.0-99.0); ABG PCO2 41 mmHg (32-45)
[2017-07-26 13:31] LABS: APPEARANCE,URINE Clear (CLEAR); BILIRUBIN,URINE Negative (NEGATIVE); COLOR,URINE Yellow (YELLOW); GLUCOSE, URINE (UA) Negative (NEGATIVE); KETONES,URINE Negative (NEGATIVE); LEUKOCYTE ESTERASE ,URINE Negative (NEGATIVE); NITRATE,URINE Negative (NEGATIVE); OCCULT BLOOD,URINE Large (NEGATIVE); PROTEIN,URINE POS 1+ (NEGATIVE); UROBILINOGEN,URINE 0.2 mg/dL (0.2-1.0)
[2017-07-26 13:33] LABS: SODIUM,URINE RANDOM 147 mmol/l (40-220)
[2017-07-26 13:39] LABS: BACTERIA,URINE Rare /HPF (None Seen); RBC,URINE 0-1 /HPF (0-1); SQUAMOUS EPITHELIAL CELL,UR 0-2 /LPF (0-2); WBC,URINE 0-1 /HPF (0-1)
[2017-07-26 13:40] LABS: HYALINE CASTS, URINE 0-1 /LPF (0-1 /LPF)
[2017-07-26 16:20] LABS: ABG BASE EXCESS 0.3 mmol/L (-2.0-3.0); ABG HCO3 25.7 mmol/L (21.0-28.0); ABG OXYGEN SATURATION 91.2 % (95.0-99.0); ABG PCO2 44 mmHg (32-45)
[2017-07-26] MEDS ORDERED: ALBUMIN (HUMAN) 5% 250 ML IV PRN (17:30)
[2017-07-26] MEDS: INSULIN HUMULIN R 100 UNIT/ML 3ML SQ SCH (17:44)
[2017-07-26 18:36] LABS: CREATININE 3.4 mg/dL (0.5-1.5); MAGNESIUM 1.8 mg/dL (1.80-2.40); PHOSPHORUS 7.5 mg/dL (2.5-4.9); POTASSIUM 5.3 mmol/L (3.5-5.1)
[2017-07-26] MEDS: MAGNESIUM 2GM PREMIX 50ML 50 ML IV PRN (18:46)
[2017-07-26] MEDS: ALBUMIN (HUMAN) 5% 250 ML IV SCH (20:08)
[2017-07-26 21:03] LABS: ABG BASE EXCESS 1.2 mmol/L (-2.0-3.0); ABG HCO3 27.1 mmol/L (21.0-28.0); ABG OXYGEN SATURATION 93.5 % (95.0-99.0); ABG PCO2 48 mmHg (32-45)
[2017-07-26] MEDS ORDERED: DEXTROSE 5%-WATER 1,000 ML IV ONE (21:43)
[2017-07-27] VITALS (22 sets, daily range): BP systolic 106–164; BP diastolic 44–87
[2017-07-27 00:02] LABS: ABG BASE EXCESS 4.5 mmol/L (-2.0-3.0); ABG HCO3 28.1 mmol/L (21.0-28.0); ABG OXYGEN SATURATION 93.9 % (95.0-99.0); ABG PCO2 38 mmHg (32-45)
[2017-07-27] MEDS ORDERED: INSULIN HUMULIN R 100 UNIT/ML 3ML SQ ONE (00:25)
[2017-07-27] MEDS: INSULIN HUMULIN R 100 UNIT/ML 3ML SQ SCH ×4 (00:39→18:39)
[2017-07-27] MEDS: SUCRALFATE 1 GM/10 ML GT SCH ×4 (01:39→20:14)
[2017-07-27] MEDS: EPINEPHRINE 8 MG in SODIUM CHLORIDE 0.9% 250 ML IV PRN (01:40)
[2017-07-27] MEDS: SODIUM CHLORIDE 0.9% 500ML 500 ML IV SCH (03:46)
[2017-07-27 03:56] LABS: BASOPHILS % (AUTO) 0.4 % (0.0-5.0); EOSINOPHILS % (AUTO) 0.9 % (0.0-8.0); HEMATOCRIT 34.1 % (36-48); LYMPHOCYTES % (AUTO) 9.3 % (21.0-51.0); MEAN CORPUSCULAR HEMOGLOBIN 29.9 pg (27.0-33.0); MEAN CORPUSCULAR HGB CONC 34.3 g/dL (32.0-36.0); MEAN CORPUSCULAR VOLUME 87.2 fL (79-99); MONOCYTES % (AUTO) 1.5 % (3.0-13.0); NEUTROPHILS % (AUTO) 87.9 % (40.0-77.0); NUCLEATED RED BLOOD CELLS 2.3 % (0.0-0.19); PLATELET COUNT (AUTO) 69 K/uL (130-400); RED BLOOD CELL COUNT(AUTO) 3.91 MIL/uL (4.00-5.50); RED CELL DISTRIBUTION WIDTH 15.7 % (11.0-15.5)
[2017-07-27 04:12] LABS: B-TYPE NATRIURETIC PEPTIDE 1300 pg/mL (0-100)
[2017-07-27 04:41] LABS: ALBUMIN 2.5 g/dL (3.5-5.0); BILIRUBIN,TOTAL 1.5 mg/dL (0.2-1.0); CREATININE 3.6 mg/dL (0.5-1.5); MAGNESIUM 2.5 mg/dL (1.80-2.40); PHOSPHORUS 5.4 mg/dL (2.5-4.9); POTASSIUM 4.6 mmol/L (3.5-5.1)
[2017-07-27 06:06] LABS: ABG HCO3 31.2 mmol/L (21.0-28.0); ABG OXYGEN SATURATION 95.8 % (95.0-99.0); ABG PCO2 39 mmHg (32-45)
[2017-07-27] MEDS: PANTOPRAZOLE 40 MG/VIAL IVP SCH (08:39)
[2017-07-27] MEDS: FUROSEMIDE 100 MG in SODIUM CHLORIDE 0.9% 90 ML IV SCH ×2 (08:39→20:14)
[2017-07-27] MEDS: MEROPENEM 500 MG VIAL IVP SCH ×2 (08:44→20:23)
[2017-07-27] MEDS: ASPIRIN 81MG TAB.CHEW PO SCH (08:44)
[2017-07-27 09:04] LABS: INR 1.63 (0.85-1.15); PARTIAL THROMBOPLASTIN TIME 37.2 SEC (26.3-35.5)
[2017-07-27 13:00] LABS: CREATINE KINASE MB 42.4 ng/mL (0.5-3.6)
[2017-07-27 13:16] LABS: ABG BASE EXCESS 7.2 mmol/L (-2.0-3.0); ABG HCO3 29.2 mmol/L (21.0-28.0); ABG OXYGEN SATURATION 91.7 % (95.0-99.0); ABG PCO2 33 mmHg (32-45)
[2017-07-27 13:26] LABS: TROPONIN I 110.19 ng/mL (0.00-0.06)
[2017-07-27] MEDS: VANCOMYCIN 500MG+NS 100ML 100 ML IV SCH (14:25)
[2017-07-27] MEDS: DEXTROSE 5%-WATER 1,000 ML IV SCH (14:57)
[2017-07-27] MEDS: NOREPINEPHRINE BITARTRATE 8 MG in SODIUM CHLORIDE 0.9% 250 ML IV SCH (20:15)
[2017-07-27 22:57] LABS: ABG BASE EXCESS 6.3 mmol/L (-2.0-3.0); ABG HCO3 27.6 mmol/L (21.0-28.0); ABG OXYGEN SATURATION 96.7 % (95.0-99.0); ABG PCO2 29 mmHg (32-45)
[2017-07-27] MEDS ORDERED: CALCIUM GLUCONATE 1 GM/10 ML VIAL IV ONE (23:52)
[2017-07-27] MEDS: POTASSIUM CHLORIDE 20MEQ/100ML 100 ML IV PRN (23:59)
[2017-07-28] VITALS (24 sets, daily range): BP systolic 96–180; BP diastolic 52–83
[2017-07-28] MEDS: INSULIN HUMULIN R 100 UNIT/ML 3ML SQ SCH ×4 (00:10→17:17)
[2017-07-28] MEDS: DEXTROSE 5%-WATER 1,000 ML IV SCH ×2 (01:15→21:01)
[2017-07-28] MEDS: SUCRALFATE 1 GM/10 ML GT SCH ×4 (02:48→21:00)
[2017-07-28] MEDS: EPINEPHRINE 8 MG in SODIUM CHLORIDE 0.9% 250 ML IV PRN (02:52)
[2017-07-28 03:32] LABS: HEMATOCRIT 32.5 % (36-48); MEAN CORPUSCULAR HEMOGLOBIN 30.1 pg (27.0-33.0); MEAN CORPUSCULAR HGB CONC 34.2 g/dL (32.0-36.0); MEAN CORPUSCULAR VOLUME 87.9 fL (79-99); NUCLEATED RED BLOOD CELLS 0.5 % (0.0-0.19); PLATELET COUNT (AUTO) 36 K/uL (130-400); RED BLOOD CELL COUNT(AUTO) 3.69 MIL/uL (4.00-5.50); WHITE BLOOD COUNT (AUTO) 18.9 K/uL (4.8-10.8)
[2017-07-28 03:45] LABS: INR 1.21 (0.85-1.15); PARTIAL THROMBOPLASTIN TIME 36.4 SEC (26.3-35.5); PROTHROMBIN TIME 12.7 SEC (9.6-11.6)
[2017-07-28 04:42] LABS: CREATININE 4.3 mg/dL (0.5-1.5)
[2017-07-28 05:26] LABS: ABG BASE EXCESS 9.9 mmol/L (-2.0-3.0); ABG HCO3 31.9 mmol/L (21.0-28.0); ABG OXYGEN SATURATION 97.1 % (95.0-99.0); ABG PCO2 34 mmHg (32-45)
[2017-07-28] MEDS ORDERED: CALCIUM GLUCONATE 1 GM/10 ML VIAL IV ONE ×2 (05:30→16:36)
[2017-07-28] MEDS: POTASSIUM CHLORIDE 20MEQ/100ML 100 ML IV PRN ×2 (05:37→10:00)
[2017-07-28] MEDS ORDERED: PHYTONADIONE 10 MG/1 ML AMP PO SCH (09:00)
[2017-07-28] MEDS: ASPIRIN 81MG TAB.CHEW PO SCH (09:00)
[2017-07-28 09:31] LABS: CREATININE 4.4 mg/dL (0.5-1.5); POTASSIUM 4.1 mmol/L (3.5-5.1)
[2017-07-28] MEDS: PANTOPRAZOLE 40 MG/VIAL IVP SCH (09:33)
[2017-07-28] MEDS: MEROPENEM 500 MG VIAL IVP SCH ×2 (09:33→21:00)
[2017-07-28] MEDS ORDERED: SODIUM CHLORIDE 0.9% 50 ML IV ONE (09:58)
[2017-07-28] MEDS: PHYTONADIONE 1MG/ML ORAL SOLN PO SCH ×2 (10:20)
[2017-07-28] MEDS: CALCIUM GLUCONATE 1 GM/10 ML VIAL IV ONE ×2 (11:05→11:06)
[2017-07-28] MEDS: CALCIUM GLUCONATE 1 GM in SODIUM CHLORIDE 0.9% 50 ML IV PRN ×3 (11:07→16:38)
[2017-07-28] MEDS: FUROSEMIDE 100 MG in SODIUM CHLORIDE 0.9% 90 ML IV SCH ×2 (11:35→21:02)
[2017-07-28] MEDS: MORPHINE SULFATE 2 MG/ML 1ML SYG IV PRN (11:46)
[2017-07-28 13:15] LABS: ABG BASE EXCESS 6.1 mmol/L (-2.0-3.0); ABG HCO3 27.4 mmol/L (21.0-28.0); ABG OXYGEN SATURATION 96.3 % (95.0-99.0); ABG PCO2 29 mmHg (32-45)
[2017-07-28] MEDS: VANCOMYCIN 500MG+NS 100ML 100 ML IV SCH (14:33)
[2017-07-28] MEDS: ALBUMIN (HUMAN) 5% 250 ML IV SCH (14:48)
[2017-07-28 15:52] LABS: ABG BASE EXCESS 7.1 mmol/L (-2.0-3.0); ABG HCO3 31.8 mmol/L (21.0-28.0); ABG OXYGEN SATURATION 91.6 % (95.0-99.0); ABG PCO2 46 mmHg (32-45)
[2017-07-29] VITALS (25 sets, daily range): BP systolic 85–127; BP diastolic 44–91
[2017-07-29] MEDS: SUCRALFATE 1 GM/10 ML GT SCH ×4 (01:30→20:07)
[2017-07-29 04:30] LABS: HEMATOCRIT 28.7 % (36-48); MEAN CORPUSCULAR HEMOGLOBIN 29.7 pg (27.0-33.0); MEAN CORPUSCULAR HGB CONC 33.9 g/dL (32.0-36.0); MEAN CORPUSCULAR VOLUME 87.7 fL (79-99); NUCLEATED RED BLOOD CELLS 0.4 % (0.0-0.19); PLATELET COUNT (AUTO) 127 K/uL (130-400); RED BLOOD CELL COUNT(AUTO) 3.27 MIL/uL (4.00-5.50); RED CELL DISTRIBUTION WIDTH 15.8 % (11.0-15.5); WHITE BLOOD COUNT (AUTO) 14.8 K/uL (4.8-10.8)
[2017-07-29 04:43] LABS: ALBUMIN 2.2 g/dL (3.5-5.0); BILIRUBIN,DIRECT 0.4 mg/dL (0.0-0.3); BILIRUBIN,TOTAL 1.2 mg/dL (0.2-1.0); CREATININE 4.8 mg/dL (0.5-1.5); TOTAL PROTEIN, SERUM 4.7 g/dL (6.0-8.3)
[2017-07-29] MEDS: INSULIN HUMULIN R 100 UNIT/ML 3ML SQ SCH ×4 (05:42→18:00)
[2017-07-29 05:43] LABS: ABG BASE EXCESS 9.8 mmol/L (-2.0-3.0); ABG HCO3 30.3 mmol/L (21.0-28.0); ABG OXYGEN SATURATION 96.8 % (95.0-99.0); ABG PCO2 29 mmHg (32-45)
[2017-07-29 05:45] LABS: BAND NEUTROPHILS % (MANUAL) 15 % (0-2); LYMPHOCYTES % (MANUAL) 9 % (22-44); MAN.DIFF COMMENT-IMPRESSION MANUAL DIF; MONOCYTES % (MANUAL) 4 % (2-9); PLATELET MORPHOLOGY COMMENT SLIGHTLY DECREASED; SEGMENTED NEUTROPHILS % 72 % (40-70)
[2017-07-29] MEDS: HYDROCODONE/ACETAMINOPHEN 5/325 MG TAB PO PRN (07:27)
[2017-07-29] MEDS: MEROPENEM 500 MG VIAL IVP SCH ×2 (08:04→20:07)
[2017-07-29] MEDS: ASPIRIN 81MG TAB.CHEW PO SCH (08:04)
[2017-07-29] MEDS: FUROSEMIDE 100 MG in SODIUM CHLORIDE 0.9% 90 ML IV SCH ×2 (08:05→20:24)
[2017-07-29] MEDS: PHYTONADIONE 1MG/ML ORAL SOLN PO SCH ×2 (09:57)
[2017-07-29] MEDS: PANTOPRAZOLE 40 MG/VIAL IVP SCH (09:57)
[2017-07-29 11:13] LABS: ABG BASE EXCESS 7.4 mmol/L (-2.0-3.0); ABG HCO3 30.6 mmol/L (21.0-28.0); ABG OXYGEN SATURATION 97.7 % (95.0-99.0); ABG PCO2 38 mmHg (32-45)
[2017-07-29] MEDS: CLOPIDOGREL BISULFATE 75 MG TAB NG SCH (12:11)
[2017-07-29] MEDS: METOCLOPRAMIDE 10 MG/2 ML VIAL IVP SCH ×2 (12:11→17:36)
[2017-07-29] MEDS: VANCOMYCIN 500MG+NS 100ML 100 ML IV SCH (13:58)
[2017-07-29] MEDS: MORPHINE SULFATE 2 MG/ML 1ML SYG IV PRN (20:09)
[2017-07-29] MEDS: MUPIROCIN OINTMENT 22 GM TUBE TP SCH (21:32)
[2017-07-30] VITALS (24 sets, daily range): BP systolic 79–134; BP diastolic 42–86
[2017-07-30] MEDS: SUCRALFATE 1 GM/10 ML GT SCH ×5 (02:00→19:43)
[2017-07-30 05:32] LABS: ABG HCO3 28.1 mmol/L (21.0-28.0); ABG OXYGEN SATURATION 95.8 % (95.0-99.0); ABG PCO2 33 mmHg (32-45)
[2017-07-30 05:51] LABS: HEMATOCRIT 28.9 % (36-48); MEAN CORPUSCULAR HEMOGLOBIN 29.7 pg (27.0-33.0); MEAN CORPUSCULAR HGB CONC 33.6 g/dL (32.0-36.0); MEAN CORPUSCULAR VOLUME 88.6 fL (79-99); NUCLEATED RED BLOOD CELLS 0.7 % (0.0-0.19); PLATELET COUNT (AUTO) 93 K/uL (130-400); RED BLOOD CELL COUNT(AUTO) 3.26 MIL/uL (4.00-5.50); RED CELL DISTRIBUTION WIDTH 15.7 % (11.0-15.5); WHITE BLOOD COUNT (AUTO) 11.4 K/uL (4.8-10.8)
[2017-07-30] MEDS: INSULIN HUMULIN R 100 UNIT/ML 3ML SQ SCH ×5 (06:00→23:50)
[2017-07-30 06:01] LABS: ALBUMIN 1.9 g/dL (3.5-5.0); CREATININE 5.5 mg/dL (0.5-1.5); POTASSIUM 3.7 mmol/L (3.5-5.1); TOTAL PROTEIN, SERUM 4.6 g/dL (6.0-8.3)
[2017-07-30] MEDS: METOCLOPRAMIDE 10 MG/2 ML VIAL IVP SCH ×3 (06:04→17:30)
[2017-07-30] MEDS: MORPHINE SULFATE 2 MG/ML 1ML SYG IV PRN ×2 (06:05→20:49)
[2017-07-30 06:18] LABS: BAND NEUTROPHILS % (MANUAL) 18 % (0-2); LYMPHOCYTES % (MANUAL) 10 % (22-44); MAN.DIFF COMMENT-IMPRESSION MANUAL DIFFERENTIAL; MONOCYTES % (MANUAL) 2 % (2-9); PLATELET MORPHOLOGY COMMENT DECREASED; SEGMENTED NEUTROPHILS % 70 % (40-70)
[2017-07-30] MEDS: HYDROCODONE/ACETAMINOPHEN 5/325 MG TAB PO PRN ×3 (07:43→08:57)
[2017-07-30] MEDS: MEROPENEM 500 MG VIAL IVP SCH ×2 (08:55→20:47)
[2017-07-30] MEDS: CLOPIDOGREL BISULFATE 75 MG TAB NG SCH (08:56)
[2017-07-30] MEDS: ASPIRIN 81MG TAB.CHEW PO SCH (08:56)
[2017-07-30] MEDS: PANTOPRAZOLE 40 MG/VIAL IVP SCH (08:56)
[2017-07-30] MEDS: PHYTONADIONE 1MG/ML ORAL SOLN PO SCH ×2 (09:00)
[2017-07-30] MEDS ORDERED: ALBUMIN (HUMAN) 5% 500 ML IV SCH (09:20)
[2017-07-30] MEDS ORDERED: PHYTONADIONE 1MG/ML ORAL SOLN PO SCH ×2 (11:30)
[2017-07-30] MEDS: DEXTROSE 5 % AND 0.9 % NACL 1,000 ML IV SCH (12:12)
[2017-07-30] MEDS: VANCOMYCIN 500MG+NS 100ML 100 ML IV SCH (13:33)
[2017-07-30] MEDS: MUPIROCIN OINTMENT 22 GM TUBE TP SCH (20:47)
[2017-07-31] VITALS (23 sets, daily range): BP systolic 88–125; BP diastolic 45–91
[2017-07-31] MEDS: SUCRALFATE 1 GM/10 ML GT SCH ×4 (02:11→21:51)
[2017-07-31 04:14] LABS: HEMATOCRIT 27.9 % (36-48); MEAN CORPUSCULAR HEMOGLOBIN 30.2 pg (27.0-33.0); MEAN CORPUSCULAR HGB CONC 34.2 g/dL (32.0-36.0); MEAN CORPUSCULAR VOLUME 88.4 fL (79-99); NUCLEATED RED BLOOD CELLS 0.6 % (0.0-0.19); PLATELET COUNT (AUTO) 84 K/uL (130-400); RED BLOOD CELL COUNT(AUTO) 3.16 MIL/uL (4.00-5.50); RED CELL DISTRIBUTION WIDTH 15.6 % (11.0-15.5); WHITE BLOOD COUNT (AUTO) 11.7 K/uL (4.8-10.8)
[2017-07-31 04:16] LABS: ABG BASE EXCESS 5.1 mmol/L (-2.0-3.0); ABG HCO3 28.1 mmol/L (21.0-28.0); ABG OXYGEN SATURATION 94.7 % (95.0-99.0); ABG PCO2 36 mmHg (32-45)
[2017-07-31 04:24] LABS: INR 1.02 (0.85-1.15); PROTHROMBIN TIME 10.7 SEC (9.6-11.6)
[2017-07-31 04:26] LABS: BILIRUBIN,TOTAL 0.8 mg/dL (0.2-1.0); CREATININE 5.6 mg/dL (0.5-1.5); MAGNESIUM 1.8 mg/dL (1.80-2.40); PHOSPHORUS 2.8 mg/dL (2.5-4.9); POTASSIUM 3.6 mmol/L (3.5-5.1); TOTAL PROTEIN, SERUM 4.8 g/dL (6.0-8.3)
[2017-07-31 04:37] LABS: PARTIAL THROMBOPLASTIN TIME 32.9 SEC (26.3-35.5)
[2017-07-31 05:25] LABS: BAND NEUTROPHILS % (MANUAL) 25 % (0-2); EOSINOPHILS % (MANUAL) 3 % (1-6); LYMPHOCYTES % (MANUAL) 5 % (22-44); MONOCYTES % (MANUAL) 3 % (2-9); SEGMENTED NEUTROPHILS % 64 % (40-70)
[2017-07-31 05:26] LABS: MAN.DIFF COMMENT-IMPRESSION MANUAL DIFFERENTIAL
[2017-07-31 05:27] LABS: PLATELET MORPHOLOGY COMMENT DECREASED
[2017-07-31] MEDS: INSULIN HUMULIN R 100 UNIT/ML 3ML SQ SCH ×3 (06:12→17:34)
[2017-07-31] MEDS: METOCLOPRAMIDE 10 MG/2 ML VIAL IVP SCH ×3 (06:14→17:33)
[2017-07-31] MEDS: CLOPIDOGREL BISULFATE 75 MG TAB NG SCH (08:54)
[2017-07-31] MEDS: MEROPENEM 500 MG VIAL IVP SCH ×2 (08:54→20:47)
[2017-07-31] MEDS: ASPIRIN 81MG TAB.CHEW PO SCH (08:54)
[2017-07-31] MEDS: PANTOPRAZOLE 40 MG/VIAL IVP SCH (09:00)
[2017-07-31] MEDS: DEXTROSE 5 % AND 0.9 % NACL 1,000 ML IV SCH (09:30)
[2017-07-31] MEDS ORDERED: ZOSYN 3.375GM+NS 50ML 50 ML IV SCH (11:15)
[2017-07-31] MEDS ORDERED: MEROPENEM 500 MG VIAL IVP SCH (12:00)
[2017-07-31] MEDS: HYDROCODONE/ACETAMINOPHEN 5/325 MG TAB PO PRN (19:41)
[2017-07-31] MEDS: FAMOTIDINE/PF 20 MG/2 ML VIAL IV SCH (20:48)
[2017-07-31] MEDS: MUPIROCIN OINTMENT 22 GM TUBE TP SCH (21:51)
[2017-08-01] VITALS (21 sets, daily range): BP systolic 93–179; BP diastolic 51–107
[2017-08-01] MEDS: SUCRALFATE 1 GM/10 ML GT SCH ×4 (04:16→17:36)
[2017-08-01 05:40] LABS: HEMATOCRIT 26.4 % (36-48); MEAN CORPUSCULAR HEMOGLOBIN 31.6 pg (27.0-33.0); MEAN CORPUSCULAR HGB CONC 35.7 g/dL (32.0-36.0); MEAN CORPUSCULAR VOLUME 88.6 fL (79-99); NUCLEATED RED BLOOD CELLS 0.1 % (0.0-0.19); PLATELET COUNT (AUTO) 107 K/uL (130-400); RED BLOOD CELL COUNT(AUTO) 2.98 MIL/uL (4.00-5.50); RED CELL DISTRIBUTION WIDTH 15.6 % (11.0-15.5); WHITE BLOOD COUNT (AUTO) 13.8 K/uL (4.8-10.8)
[2017-08-01 05:45] LABS: BAND NEUTROPHILS % (MANUAL) 17 % (0-2); BASOPHILS % (MANUAL) 1 % (0-2); EOSINOPHILS % (MANUAL) 1 % (1-6); LYMPHOCYTES % (MANUAL) 11 % (22-44); MONOCYTES % (MANUAL) 5 % (2-9); SEGMENTED NEUTROPHILS % 65 % (40-70)
[2017-08-01 05:46] LABS: MAN.DIFF COMMENT-IMPRESSION MANUAL DIFFERENTIAL; PLATELET MORPHOLOGY COMMENT DECREASED
[2017-08-01] MEDS: INSULIN HUMULIN R 100 UNIT/ML 3ML SQ SCH ×4 (05:47→17:29)
[2017-08-01 05:51] LABS: CREATININE 5.7 mg/dL (0.5-1.5); MAGNESIUM 1.9 mg/dL (1.80-2.40); PHOSPHORUS 2.6 mg/dL (2.5-4.9)
[2017-08-01 06:06] LABS: POTASSIUM 2.9 mmol/L (3.5-5.1)
[2017-08-01 07:30] LABS: HEPATITIS A ANTIBODY IGM Negative (Negative); HEPATITIS B CORE IGM Negative (Negative); HEPATITIS Bs ANTIGEN SCREEN P Negative (Negative)
[2017-08-01] MEDS: METOCLOPRAMIDE 10 MG/2 ML VIAL IVP SCH ×3 (07:30→17:37)
[2017-08-01] MEDS: PANTOPRAZOLE 40 MG/VIAL IVP SCH (09:00)
[2017-08-01] MEDS: DEXTROSE 5 % AND 0.9 % NACL 1,000 ML IV SCH (09:30)
[2017-08-01] MEDS: ASPIRIN 81MG TAB.CHEW PO SCH (10:24)
[2017-08-01] MEDS: CLOPIDOGREL BISULFATE 75 MG TAB NG SCH (10:24)
[2017-08-01] MEDS: MEROPENEM 500 MG VIAL IVP SCH ×2 (10:24→20:12)
[2017-08-01] MEDS: HYDROCODONE/ACETAMINOPHEN 5/325 MG TAB PO PRN ×2 (14:08→23:33)
[2017-08-01] MEDS: POTASSIUM CHLORIDE 20 MEQ ERTAB PO SCH (17:36)
[2017-08-01] MEDS: FAMOTIDINE/PF 20 MG/2 ML VIAL IV SCH (20:11)
[2017-08-01] MEDS ORDERED: FUROSEMIDE 20 MG TABLET PO ONE (20:15)
[2017-08-01] MEDS: MUPIROCIN OINTMENT 22 GM TUBE TP SCH (22:00)
[2017-08-01] MEDS ORDERED: LORAZEPAM 2 MG/ML 1 ML VIAL IM PRN (23:15)
[2017-08-01] MEDS ORDERED: GUAIFENESIN-DM 200/20 MG 10 ML PO PRN (23:15)
[2017-08-01] MEDS ORDERED: GUAIFENESIN-DM 200/20 MG 10 ML ONE (23:33)
[2017-08-02] VITALS (24 sets, daily range): BP systolic 119–163; BP diastolic 52–97
[2017-08-02] MEDS: SUCRALFATE 1 GM/10 ML GT SCH ×5 (02:00→20:20)
[2017-08-02 04:12] LABS: CREATININE 5.4 mg/dL (0.5-1.5); POTASSIUM 3.7 mmol/L (3.5-5.1)
[2017-08-02 04:13] LABS: HEMATOCRIT 32.9 % (36-48); MEAN CORPUSCULAR HEMOGLOBIN 30.6 pg (27.0-33.0); MEAN CORPUSCULAR HGB CONC 34.3 g/dL (32.0-36.0); MEAN CORPUSCULAR VOLUME 89.1 fL (79-99); PLATELET COUNT (AUTO) 161 K/uL (130-400); RED BLOOD CELL COUNT(AUTO) 3.69 MIL/uL (4.00-5.50); RED CELL DISTRIBUTION WIDTH 16.1 % (11.0-15.5)
[2017-08-02 04:52] LABS: BAND NEUTROPHILS % (MANUAL) 14 % (0-2); EOSINOPHILS % (MANUAL) 1 % (1-6); LYMPHOCYTES % (MANUAL) 4 % (22-44); MONOCYTES % (MANUAL) 7 % (2-9); REACTIVE LYMPHOCYTES 1 % (0-0); SEGMENTED NEUTROPHILS % 73 % (40-70)
[2017-08-02 04:54] LABS: MAN.DIFF COMMENT-IMPRESSION MANUAL DIFFERENTIAL
[2017-08-02] MEDS: INSULIN HUMULIN R 100 UNIT/ML 3ML SQ SCH ×5 (06:00→21:00)
[2017-08-02] MEDS ORDERED: LORAZEPAM 2 MG/ML 1 ML VIAL IVP PRN (07:15)
[2017-08-02] MEDS: METOCLOPRAMIDE 10 MG/2 ML VIAL IVP SCH ×2 (07:59→20:20)
[2017-08-02] MEDS: POTASSIUM CHLORIDE 20 MEQ ERTAB PO SCH (08:00)
[2017-08-02] MEDS: PANTOPRAZOLE SODIUM 40 MG TABLET.DR PO SCH (08:00)
[2017-08-02] MEDS: ASPIRIN 81MG TAB.CHEW PO SCH (08:00)
[2017-08-02] MEDS: MEROPENEM 500 MG VIAL IVP SCH (08:00)
[2017-08-02] MEDS: CLOPIDOGREL BISULFATE 75 MG TAB NG SCH (08:00)
[2017-08-02] MEDS ORDERED: POTASSIUM CHLORIDE 20 MEQ ERTAB PO SCH (09:00)
[2017-08-02] MEDS ORDERED: CEFEPIME 1GM+NS 50ML 50 ML IV SCH ×3 (09:15→21:00)
[2017-08-02 09:36] LABS: APPEARANCE,URINE Clear (CLEAR); BILIRUBIN,URINE Negative (NEGATIVE); COLOR,URINE Yellow (YELLOW); GLUCOSE, URINE (UA) Negative (NEGATIVE); KETONES,URINE Trace mg/dL (NEGATIVE); LEUKOCYTE ESTERASE ,URINE Negative (NEGATIVE); NITRATE,URINE Negative (NEGATIVE); OCCULT BLOOD,URINE Moderate (NEGATIVE); PROTEIN,URINE POS 1+ (NEGATIVE)
[2017-08-02 09:53] LABS: BACTERIA,URINE Rare /HPF (None Seen); RBC,URINE 0-1 /HPF (0-1); SQUAMOUS EPITHELIAL CELL,UR Rare /LPF (0-2); WBC,URINE 0-1 /HPF (0-1)
[2017-08-02] MEDS: IPRATROPIUM/ALBUTEROL SULFATE 3 ML SOLUTION IH SCH ×4 (09:59→22:34)
[2017-08-02] MEDS ORDERED: ACETYLCYSTEINE 10% 100MG/ML 4ML VIAL IH SCH (10:00)
[2017-08-02] MEDS: CEFEPIME HCL 1 GM VIAL IVP SCH ×2 (12:13→23:29)
[2017-08-02] MEDS: METRONIDAZOLE 500MG/100ML BAG 100 ML IV SCH ×3 (12:14→22:36)
[2017-08-02] MEDS: ACETYLCYSTEINE 10% 100MG/ML 4ML VIAL IH SCH ×2 (14:00→18:07)
[2017-08-02] MEDS: FAMOTIDINE/PF 20 MG/2 ML VIAL IV SCH (20:20)
[2017-08-02] MEDS: FUROSEMIDE 20 MG TABLET PO SCH (20:21)
[2017-08-02] MEDS: MUPIROCIN OINTMENT 22 GM TUBE TP SCH (22:37)
[2017-08-03] VITALS (24 sets, daily range): BP systolic 111–153; BP diastolic 65–98
[2017-08-03] MEDS: SUCRALFATE 1 GM/10 ML GT SCH ×4 (02:00→21:25)
[2017-08-03] MEDS: IPRATROPIUM/ALBUTEROL SULFATE 3 ML SOLUTION IH SCH ×6 (02:24→22:25)
[2017-08-03 05:04] LABS: HEMATOCRIT 30.5 % (36-48); MEAN CORPUSCULAR HEMOGLOBIN 30.7 pg (27.0-33.0); MEAN CORPUSCULAR HGB CONC 34.9 g/dL (32.0-36.0); MEAN CORPUSCULAR VOLUME 88.1 fL (79-99); NUCLEATED RED BLOOD CELLS 0.2 % (0.0-0.19); PLATELET COUNT (AUTO) 198 K/uL (130-400); RED BLOOD CELL COUNT(AUTO) 3.47 MIL/uL (4.00-5.50); RED CELL DISTRIBUTION WIDTH 15.9 % (11.0-15.5); WHITE BLOOD COUNT (AUTO) 19.8 K/uL (4.8-10.8)
[2017-08-03] MEDS: METRONIDAZOLE 500MG/100ML BAG 100 ML IV SCH (05:12)
[2017-08-03 05:26] LABS: POTASSIUM 3.3 mmol/L (3.5-5.1)
[2017-08-03] MEDS: PANTOPRAZOLE SODIUM 40 MG TABLET.DR PO SCH (05:49)
[2017-08-03] MEDS: INSULIN HUMULIN R 100 UNIT/ML 3ML SQ SCH ×4 (06:15→21:28)
[2017-08-03] MEDS: POTASSIUM CHLORIDE 20MEQ/100ML 100 ML IV PRN (06:43)
[2017-08-03] MEDS: ACETYLCYSTEINE 10% 100MG/ML 4ML VIAL IH SCH ×3 (06:59→18:16)
[2017-08-03] MEDS: CLOPIDOGREL BISULFATE 75 MG TAB NG SCH (08:03)
[2017-08-03] MEDS: FUROSEMIDE 20 MG TABLET PO SCH ×2 (08:03→21:26)
[2017-08-03] MEDS: ASPIRIN 81MG TAB.CHEW PO SCH (08:03)
[2017-08-03] MEDS: METOCLOPRAMIDE 10 MG/2 ML VIAL IVP SCH (08:04)
[2017-08-03] MEDS: POTASSIUM CHLORIDE 20 MEQ ERTAB PO SCH ×2 (08:04→09:30)
[2017-08-03] MEDS: METOPROLOL TARTRATE 25 MG TAB PO SCH ×2 (09:41→21:26)
[2017-08-03] MEDS: METRONIDAZOLE 500 MG TABLET PO SCH ×2 (09:42→16:29)
[2017-08-03] MEDS: CEFEPIME HCL 1 GM VIAL IVP SCH (11:28)
[2017-08-03] MEDS: MUPIROCIN OINTMENT 22 GM TUBE TP SCH (21:30)
[2017-08-04] VITALS (23 sets, daily range): BP systolic 119–151; BP diastolic 62–111
[2017-08-04] MEDS: CEFEPIME HCL 1 GM VIAL IVP SCH ×2 (00:45→11:53)
[2017-08-04] MEDS: METRONIDAZOLE 500 MG TABLET PO SCH ×2 (00:45→08:38)
[2017-08-04] MEDS: SUCRALFATE 1 GM/10 ML GT SCH ×4 (02:15→21:49)
[2017-08-04] MEDS: IPRATROPIUM/ALBUTEROL SULFATE 3 ML SOLUTION IH SCH ×6 (02:18→22:35)
[2017-08-04] MEDS: INSULIN HUMULIN R 100 UNIT/ML 3ML SQ SCH ×4 (06:09→20:57)
[2017-08-04] MEDS: ACETYLCYSTEINE 10% 100MG/ML 4ML VIAL IH SCH ×3 (06:41→18:17)
[2017-08-04 08:16] LABS: HEMATOCRIT 29.2 % (36-48); MEAN CORPUSCULAR HEMOGLOBIN 29.7 pg (27.0-33.0); MEAN CORPUSCULAR HGB CONC 33.6 g/dL (32.0-36.0); MEAN CORPUSCULAR VOLUME 88.2 fL (79-99); NUCLEATED RED BLOOD CELLS 0.1 % (0.0-0.19); PLATELET COUNT (AUTO) 228 K/uL (130-400); RED BLOOD CELL COUNT(AUTO) 3.31 MIL/uL (4.00-5.50); RED CELL DISTRIBUTION WIDTH 15.9 % (11.0-15.5); WHITE BLOOD COUNT (AUTO) 18.7 K/uL (4.8-10.8)
[2017-08-04 08:30] LABS: CREATININE 4.6 mg/dL (0.5-1.5)
[2017-08-04] MEDS: FUROSEMIDE 20 MG TABLET PO SCH ×2 (08:38→21:42)
[2017-08-04] MEDS: CLOPIDOGREL BISULFATE 75 MG TAB NG SCH (08:38)
[2017-08-04] MEDS: PANTOPRAZOLE SODIUM 40 MG TABLET.DR PO SCH (08:38)
[2017-08-04] MEDS: ASPIRIN 81MG TAB.CHEW PO SCH (08:38)
[2017-08-04] MEDS: METOPROLOL TARTRATE 25 MG TAB PO SCH ×2 (08:39→21:42)
[2017-08-04] MEDS: POTASSIUM CHLORIDE 20 MEQ ERTAB PO SCH ×2 (08:39→08:40)
[2017-08-04 08:45] LABS: POTASSIUM 2.9 mmol/L (3.5-5.1)
[2017-08-04 09:15] LABS: EOSINOPHILS % (MANUAL) 1 % (1-6); LYMPHOCYTES % (MANUAL) 3 % (22-44); MAN.DIFF COMMENT-IMPRESSION MANUAL DIFFERENTIAL; MONOCYTES % (MANUAL) 6 % (2-9); PLATELET MORPHOLOGY COMMENT ADEQUATE; SEGMENTED NEUTROPHILS % 90 % (40-70)
[2017-08-04] MEDS ORDERED: POTASSIUM CHLORIDE 20 MEQ ERTAB PO SCH (09:45)
[2017-08-04] MEDS: ACETAMINOPHEN 325 MG TAB PO PRN (13:50)
[2017-08-04] MEDS: NEOMYCIN/POLYMYXIN/HC OTIC SUSP 10ML BOTTLE AS SCH ×2 (15:27→21:49)
[2017-08-04] MEDS: MUPIROCIN OINTMENT 22 GM TUBE TP SCH (21:48)
[2017-08-05] VITALS (18 sets, daily range): BP systolic 104–159; BP diastolic 57–96
[2017-08-05] MEDS: IPRATROPIUM/ALBUTEROL SULFATE 3 ML SOLUTION IH SCH ×6 (02:02→22:22)
[2017-08-05] MEDS: CEFEPIME HCL 1 GM VIAL IVP SCH ×2 (02:04→11:33)
[2017-08-05] MEDS: SUCRALFATE 1 GM/10 ML GT SCH ×4 (02:08→22:51)
[2017-08-05 04:41] LABS: CREATININE 4.1 mg/dL (0.5-1.5); MAGNESIUM 1.9 mg/dL (1.80-2.40); PHOSPHORUS 3.6 mg/dL (2.5-4.9); POTASSIUM 4.4 mmol/L (3.5-5.1)
[2017-08-05 04:47] LABS: HEMATOCRIT 29.7 % (36-48); MEAN CORPUSCULAR HEMOGLOBIN 30.2 pg (27.0-33.0); MEAN CORPUSCULAR HGB CONC 33.9 g/dL (32.0-36.0); MEAN CORPUSCULAR VOLUME 89.1 fL (79-99); PLATELET COUNT (AUTO) 293 K/uL (130-400); RED BLOOD CELL COUNT(AUTO) 3.33 MIL/uL (4.00-5.50); RED CELL DISTRIBUTION WIDTH 16.9 % (11.0-15.5); WHITE BLOOD COUNT (AUTO) 16.7 K/uL (4.8-10.8)
[2017-08-05 05:11] LABS: BAND NEUTROPHILS % (MANUAL) 7 % (0-2); LYMPHOCYTES % (MANUAL) 7 % (22-44); MONOCYTES % (MANUAL) 6 % (2-9); SEGMENTED NEUTROPHILS % 80 % (40-70)
[2017-08-05 05:12] LABS: MAN.DIFF COMMENT-IMPRESSION MANUAL DIFFERENTIAL; PLATELET MORPHOLOGY COMMENT ADEQUATE
[2017-08-05] MEDS: ACETYLCYSTEINE 10% 100MG/ML 4ML VIAL IH SCH ×4 (06:11→22:22)
[2017-08-05] MEDS: INSULIN HUMULIN R 100 UNIT/ML 3ML SQ SCH ×5 (07:03→22:12)
[2017-08-05] MEDS: PANTOPRAZOLE SODIUM 40 MG TABLET.DR PO SCH (08:53)
[2017-08-05] MEDS: ASPIRIN 81MG TAB.CHEW PO SCH (08:53)
[2017-08-05] MEDS: FUROSEMIDE 20 MG TABLET PO SCH ×2 (08:53→22:29)
[2017-08-05] MEDS: CLOPIDOGREL BISULFATE 75 MG TAB NG SCH (08:53)
[2017-08-05] MEDS: POTASSIUM CHLORIDE 20 MEQ ERTAB PO SCH ×2 (08:54→09:30)
[2017-08-05] MEDS: METOPROLOL TARTRATE 25 MG TAB PO SCH ×2 (08:54→22:29)
[2017-08-05] MEDS: NEOMYCIN/POLYMYXIN/HC OTIC SUSP 10ML BOTTLE AS SCH ×3 (09:00→21:00)
[2017-08-05] MEDS ORDERED: CALCIUM GLUCONATE 1 GM in SODIUM CHLORIDE 0.9% 50 ML IV SCH (19:30)
[2017-08-05] MEDS ORDERED: MAGNESIUM SULFATE 1 GM in SODIUM CHLORIDE 0.9% 50 ML IV SCH (19:30)
[2017-08-05] MEDS ORDERED: TRAMADOL HCL 50 MG TABLET PO PRN (21:15)
[2017-08-05] MEDS: MUPIROCIN OINTMENT 22 GM TUBE TP SCH (22:00)
[2017-08-06] MEDS: CEFEPIME HCL 1 GM VIAL IVP SCH ×3 (00:48→23:46)
[2017-08-06] MEDS: SUCRALFATE 1 GM/10 ML GT SCH ×4 (02:00→22:29)
[2017-08-06] MEDS: IPRATROPIUM/ALBUTEROL SULFATE 3 ML SOLUTION IH SCH ×6 (02:54→22:47)
[2017-08-06 03:39] VITALS: BP 130/70
[2017-08-06 05:43] LABS: HEMATOCRIT 28.4 % (36-48); MEAN CORPUSCULAR HEMOGLOBIN 30.3 pg (27.0-33.0); MEAN CORPUSCULAR HGB CONC 34.1 g/dL (32.0-36.0); MEAN CORPUSCULAR VOLUME 88.7 fL (79-99); NUCLEATED RED BLOOD CELLS 0.1 % (0.0-0.19); PLATELET COUNT (AUTO) 315 K/uL (130-400); RED CELL DISTRIBUTION WIDTH 16.4 % (11.0-15.5); WHITE BLOOD COUNT (AUTO) 14.8 K/uL (4.8-10.8)
[2017-08-06] MEDS: INSULIN HUMULIN R 100 UNIT/ML 3ML SQ SCH ×4 (05:47→21:00)
[2017-08-06 05:59] LABS: CREATININE 3.8 mg/dL (0.5-1.5); POTASSIUM 3.6 mmol/L (3.5-5.1)
[2017-08-06 06:13] LABS: LYMPHOCYTES % (MANUAL) 4 % (22-44); METAMYELOCYTES % 1 % (0-0); MONOCYTES % (MANUAL) 3 % (2-9); SEGMENTED NEUTROPHILS % 92 % (40-70)
[2017-08-06 06:14] LABS: MAN.DIFF COMMENT-IMPRESSION MANUAL DIFFERENTIAL; PLATELET MORPHOLOGY COMMENT ADEQUATE
[2017-08-06] MEDS: ACETYLCYSTEINE 10% 100MG/ML 4ML VIAL IH SCH ×2 (07:00→10:22)
[2017-08-06 08:00] VITALS: BP 135/79
[2017-08-06] MEDS: POTASSIUM CHLORIDE 20 MEQ ERTAB PO SCH ×3 (08:30→12:00)
[2017-08-06] MEDS: NEOMYCIN/POLYMYXIN/HC OTIC SUSP 10ML BOTTLE AS SCH ×3 (09:00→21:00)
[2017-08-06] MEDS: CLOPIDOGREL BISULFATE 75 MG TAB NG SCH (10:37)
[2017-08-06] MEDS: METOPROLOL TARTRATE 25 MG TAB PO SCH ×2 (10:37→22:29)
[2017-08-06] MEDS: FUROSEMIDE 20 MG TABLET PO SCH ×2 (10:37→22:29)
[2017-08-06] MEDS: PANTOPRAZOLE SODIUM 40 MG TABLET.DR PO SCH (10:37)
[2017-08-06] MEDS: ASPIRIN 81MG TAB.CHEW PO SCH (10:37)
[2017-08-06 11:40] VITALS: BP 129/76
[2017-08-06 16:00] VITALS: BP 136/75
[2017-08-06 19:48] VITALS: BP 103/65
[2017-08-06] MEDS: MUPIROCIN OINTMENT 22 GM TUBE TP SCH (22:00)
[2017-08-06] MEDS: ATORVASTATIN CALCIUM 10 MG TABLET PO SCH (22:29)
[2017-08-06 23:55] VITALS: BP 126/78
[2017-08-07] MEDS: TRAMADOL HCL 50 MG TABLET PO PRN (00:29)
[2017-08-07] MEDS: SUCRALFATE 1 GM/10 ML GT SCH ×4 (02:00→22:06)
[2017-08-07] MEDS: IPRATROPIUM/ALBUTEROL SULFATE 3 ML SOLUTION IH SCH ×6 (02:02→22:22)
[2017-08-07 03:49] VITALS: BP 122/73
[2017-08-07] MEDS: INSULIN HUMULIN R 100 UNIT/ML 3ML SQ SCH ×4 (07:25→22:04)
[2017-08-07 07:34] VITALS: BP 122/80
[2017-08-07] MEDS: POTASSIUM CHLORIDE 20 MEQ ERTAB PO SCH ×3 (08:05→12:00)
[2017-08-07] MEDS: FUROSEMIDE 20 MG TABLET PO SCH ×2 (08:13→21:55)
[2017-08-07] MEDS: ASPIRIN 81MG TAB.CHEW PO SCH (08:13)
[2017-08-07] MEDS: METOPROLOL TARTRATE 25 MG TAB PO SCH ×2 (08:13→21:55)
[2017-08-07] MEDS: PANTOPRAZOLE SODIUM 40 MG TABLET.DR PO SCH (08:13)
[2017-08-07] MEDS: CLOPIDOGREL BISULFATE 75 MG TAB NG SCH (08:13)
[2017-08-07] MEDS: ENOXAPARIN SODIUM 30 MG/0.3 ML SQ SCH (08:14)
[2017-08-07] MEDS: NEOMYCIN/POLYMYXIN/HC OTIC SUSP 10ML BOTTLE AS SCH ×3 (08:14→22:07)
[2017-08-07] MEDS: ACETYLCYSTEINE 10% 100MG/ML 4ML VIAL IH SCH ×3 (09:00→22:22)
[2017-08-07 11:08] VITALS: BP 120/74
[2017-08-07] MEDS: CEFEPIME HCL 1 GM VIAL IVP SCH (12:30)
[2017-08-07 16:03] VITALS: BP 108/68
[2017-08-07 19:07] VITALS: BP 99/62
[2017-08-07] MEDS: ATORVASTATIN CALCIUM 10 MG TABLET PO SCH (21:55)
[2017-08-07] MEDS: MUPIROCIN OINTMENT 22 GM TUBE TP SCH (22:05)
[2017-08-07 23:35] VITALS: BP 115/68
[2017-08-08] MEDS: SUCRALFATE 1 GM/10 ML GT SCH ×2 (02:00→07:25)
[2017-08-08] MEDS: CEFEPIME HCL 1 GM VIAL IVP SCH (02:02)
[2017-08-08] MEDS: IPRATROPIUM/ALBUTEROL SULFATE 3 ML SOLUTION IH SCH ×6 (02:20→22:57)
[2017-08-08 04:25] VITALS: BP 118/68
[2017-08-08 04:37] LABS: HEMATOCRIT 26.1 % (36-48); MEAN CORPUSCULAR HEMOGLOBIN 30.7 pg (27.0-33.0); MEAN CORPUSCULAR HGB CONC 34.4 g/dL (32.0-36.0); MEAN CORPUSCULAR VOLUME 89.3 fL (79-99); PLATELET COUNT (AUTO) 369 K/uL (130-400); RED BLOOD CELL COUNT(AUTO) 2.92 MIL/uL (4.00-5.50); RED CELL DISTRIBUTION WIDTH 16.3 % (11.0-15.5); WHITE BLOOD COUNT (AUTO) 12.4 K/uL (4.8-10.8)
[2017-08-08 04:50] LABS: BAND NEUTROPHILS % (MANUAL) 6 % (0-2); BASOPHILS % (MANUAL) 1 % (0-2); EOSINOPHILS % (MANUAL) 1 % (1-6); LYMPHOCYTES % (MANUAL) 6 % (22-44); MAN.DIFF COMMENT-IMPRESSION MANUAL DIFFERENTIAL; MONOCYTES % (MANUAL) 3 % (2-9); PLATELET MORPHOLOGY COMMENT ADEQUATE; SEGMENTED NEUTROPHILS % 83 % (40-70)
[2017-08-08 04:56] LABS: CREATININE 3.4 mg/dL (0.5-1.5); POTASSIUM 3.9 mmol/L (3.5-5.1)
[2017-08-08] MEDS: ACETYLCYSTEINE 10% 100MG/ML 4ML VIAL IH SCH ×3 (06:23→22:57)
[2017-08-08] MEDS: INSULIN HUMULIN R 100 UNIT/ML 3ML SQ SCH ×4 (06:48→21:00)
[2017-08-08 07:00] VITALS: BP 123/76
[2017-08-08] MEDS: CLOPIDOGREL BISULFATE 75 MG TAB NG SCH (07:24)
[2017-08-08] MEDS: PANTOPRAZOLE SODIUM 40 MG TABLET.DR PO SCH (07:24)
[2017-08-08] MEDS: FUROSEMIDE 20 MG TABLET PO SCH ×2 (07:25→22:45)
[2017-08-08] MEDS: METOPROLOL TARTRATE 25 MG TAB PO SCH ×2 (07:25→22:45)
[2017-08-08] MEDS: ASPIRIN 81MG TAB.CHEW PO SCH (07:25)
[2017-08-08] MEDS: POTASSIUM CHLORIDE 20 MEQ ERTAB PO SCH ×3 (07:26→11:17)
[2017-08-08] MEDS: NEOMYCIN/POLYMYXIN/HC OTIC SUSP 10ML BOTTLE AS SCH ×3 (07:27→22:44)
[2017-08-08] MEDS: TRAMADOL HCL 50 MG TABLET PO PRN ×3 (10:28→22:47)
[2017-08-08 11:00] VITALS: BP 118/70
[2017-08-08 16:00] VITALS: BP 100/64
[2017-08-08 19:12] VITALS: BP 108/71
[2017-08-08] MEDS: MUPIROCIN OINTMENT 22 GM TUBE TP SCH (22:43)
[2017-08-08] MEDS: ATORVASTATIN CALCIUM 10 MG TABLET PO SCH (22:45)
[2017-08-08 23:20] VITALS: BP 110/69
[2017-08-09] MEDS: IPRATROPIUM/ALBUTEROL SULFATE 3 ML SOLUTION IH SCH ×4 (02:42→14:23)
[2017-08-09 04:04] LABS: HEMATOCRIT 24.4 % (36-48); LYMPHOCYTES % (AUTO) 8.1 % (21.0-51.0); MEAN CORPUSCULAR HEMOGLOBIN 31.1 pg (27.0-33.0); MEAN CORPUSCULAR HGB CONC 34.4 g/dL (32.0-36.0); MEAN CORPUSCULAR VOLUME 90.3 fL (79-99); MONOCYTES % (AUTO) 10.9 % (3.0-13.0); PLATELET COUNT (AUTO) 364 K/uL (130-400); RED BLOOD CELL COUNT(AUTO) 2.71 MIL/uL (4.00-5.50); RED CELL DISTRIBUTION WIDTH 16.7 % (11.0-15.5); WHITE BLOOD COUNT (AUTO) 11.7 K/uL (4.8-10.8)
[2017-08-09 04:10] LABS: CREATININE 3.1 mg/dL (0.5-1.5); POTASSIUM 3.6 mmol/L (3.5-5.1)
[2017-08-09 04:17] VITALS: BP 106/62
[2017-08-09] MEDS: INSULIN HUMULIN R 100 UNIT/ML 3ML SQ SCH ×3 (06:05→16:26)
[2017-08-09] MEDS: PANTOPRAZOLE SODIUM 40 MG TABLET.DR PO SCH (06:20)
[2017-08-09] MEDS: ACETYLCYSTEINE 10% 100MG/ML 4ML VIAL IH SCH ×2 (07:10→14:23)
[2017-08-09 07:41] VITALS: BP 110/73
[2017-08-09] MEDS: POTASSIUM CHLORIDE 20 MEQ ERTAB PO SCH ×3 (08:30→11:49)
[2017-08-09] MEDS: CLOPIDOGREL BISULFATE 75 MG TAB NG SCH (10:10)
[2017-08-09] MEDS: FUROSEMIDE 20 MG TABLET PO SCH (10:10)
[2017-08-09] MEDS: METOPROLOL TARTRATE 25 MG TAB PO SCH (10:10)
[2017-08-09] MEDS: ASPIRIN 81MG TAB.CHEW PO SCH (10:11)
[2017-08-09] MEDS: ENOXAPARIN SODIUM 30 MG/0.3 ML SQ SCH (10:12)
[2017-08-09] MEDS: NEOMYCIN/POLYMYXIN/HC OTIC SUSP 10ML BOTTLE AS SCH ×2 (10:19→14:00)
[2017-08-09 11:33] VITALS: BP 114/68
[2017-08-09 16:28] VITALS: BP 101/61
== END 2017-08-09 18:28 | DRG 233 ==
LOC: 2DH 12:08 → 2CV 07-24 11:51 → 2BH 07-28 18:51 → 2AH 08-05 16:12
PROVIDERS: ADMIT Family Medicine; ATTEND Family Medicine
PROC: B2111ZZ Fluoroscopy of Multiple Coronary Arteries using Low Osmolar Contrast (ICD-10-PCS; principal; 2017-07-23)
PROC: B2151ZZ Fluoroscopy of Left Heart using Low Osmolar Contrast (ICD-10-PCS; 2017-07-23)
PROC: 4A023N7 Measurement of Cardiac Sampling and Pressure, Left Heart, Percutaneous Approach (ICD-10-PCS; 2017-07-23)
PROC: B3121ZZ Fluoroscopy of Left Subclavian Artery using Low Osmolar Contrast (ICD-10-PCS; 2017-07-23)
PROC: 021209W Bypass Coronary Artery, Three Arteries from Aorta with Autologous Venous Tissue, Open Approach (ICD-10-PCS; 2017-07-24 11:11)
PROC: 02100Z9 Bypass Coronary Artery, One Artery from Left Internal Mammary, Open Approach (ICD-10-PCS; 2017-07-24 11:11)
PROC: 06BP0ZZ Excision of Right Saphenous Vein, Open Approach (ICD-10-PCS; 2017-07-24 11:11)
PROC: 0WCC0ZZ Extirpation of Matter from Mediastinum, Open Approach (ICD-10-PCS; 2017-07-26)
PROC: 03L Upper Arteries, Occlusion (ICD-10-PCS; 2017-07-26)
PROC: 30233K1 Transfusion of Nonautologous Frozen Plasma into Peripheral Vein, Percutaneous Approach (ICD-10-PCS; 2017-07-26)
PROC: 30233N1 Transfusion of Nonautologous Red Blood Cells into Peripheral Vein, Percutaneous Approach (ICD-10-PCS; 2017-07-26)
PROC: 30233R1 Transfusion of Nonautologous Platelets into Peripheral Vein, Percutaneous Approach (ICD-10-PCS; 2017-07-26)
PROC: 0W9B30Z Drainage of Left Pleural Cavity with Drainage Device, Percutaneous Approach (ICD-10-PCS; 2017-07-31)
PROC: 5A09357 Assistance with Respiratory Ventilation, Less than 24 Consecutive Hours, Continuous Positive Airway Pressure (ICD-10-PCS; 2017-08-02)
PROC: 5A09357 Assistance with Respiratory Ventilation, Less than 24 Consecutive Hours, Continuous Positive Airway Pressure (ICD-10-PCS; 2017-08-04)
PROC: 5A09357 Assistance with Respiratory Ventilation, Less than 24 Consecutive Hours, Continuous Positive Airway Pressure (ICD-10-PCS; 2017-08-05)
DX: I21.4 Non-ST elevation (NSTEMI) myocardial infarction (principal); N17.0 Acute kidney failure with tubular necrosis; K72.00 Acute and subacute hepatic failure without coma; R57.0 Cardiogenic shock; J96.00 Acute respiratory failure, unspecified whether with hypoxia or hypercapnia; J18.9 Pneumonia, unspecified organism; G92 Toxic encephalopathy; J94.2 Hemothorax; J98.11 Atelectasis; E87.4 Mixed disorder of acid-base balance; N17.9 Acute kidney failure, unspecified; D62 Acute posthemorrhagic anemia; E44.1 Mild protein-calorie malnutrition; I13.0 Hypertensive heart and chronic kidney disease with heart failure and stage 1 through stage 4 chronic kidney disease, or unspecified chronic kidney disease; E87.0 Hyperosmolality and hypernatremia; D68.9 Coagulation defect, unspecified; B17.9 Acute viral hepatitis, unspecified; B35.1 Tinea unguium; I25.110 Atherosclerotic heart disease of native coronary artery with unstable angina pectoris; E78.5 Hyperlipidemia, unspecified; R31.9 Hematuria, unspecified; E11.22 Type 2 diabetes mellitus with diabetic chronic kidney disease; E66.01 Morbid (severe) obesity due to excess calories; E78.00 Pure hypercholesterolemia, unspecified; E87.6 Hypokalemia; F41.9 Anxiety disorder, unspecified; I25.82 Chronic total occlusion of coronary artery; I50.9 Heart failure, unspecified; J45.909 Unspecified asthma, uncomplicated; L60.0 Ingrowing nail; L60.2 Onychogryphosis; N18.9 Chronic kidney disease, unspecified; Z79.82 Long term (current) use of aspirin; Z68.29 Body mass index [BMI] 29.0-29.9, adult
CPT/HCPCS: 10030; 36415; 36430; 36600; 71045; 71250; 76700; 76882; 76998; 80048; 80053; 80074; 80076; 80202; 81001; 82330; 82435; 82550; 82553; 82803; 82947; 82948; 83036; 83605; 83735; 83874; 83880; 84100; 84132; 84295; 84300; 84484; 85018; 85025; 85027; 85049; 85347; 85384; 85610; 85730; 86022; 86850; 86900; 86901; 86922; 86927; 87040; 87088; 92610; 93005; 93306; 93458; 93880; 94002; 94003; 94010; 94150; 94640; 94660; 94664; 94667; 94668; 97039; A4218; A4606; A7048; C1760; C1894; C9113; J0171; J0282; J0461; J0610; J0692; J0697; J1644; J1650; J1720; J1815; J1940; J2001; J2060; J2150; J2185; J2250; J2260; J2270; J2370; J2405; J2440; J2543; J2704; J2710; J2720; J2765; J3010; J3370; J3430; J3475; J3480; J3490; J7030; J7040; J7060; J7070; J7120; J7608; P9012; P9016; P9017; P9034; P9045; P9047; Q9967

== ENCOUNTER 2021-09-22 05:38 | Day surgery (SDC) | payer MEDICARE ==
[2021-09-20 12:11] LABS: BASOPHILS % (AUTO) 0.4 % (0.0-5.0); EOSINOPHILS % (AUTO) 2.3 % (0.0-8.0); HEMATOCRIT 39.3 % (36-48); LYMPHOCYTES % (AUTO) 20.1 % (21.0-51.0); MEAN CORPUSCULAR HGB CONC 33.3 g/dL (32.0-36.0); MEAN CORPUSCULAR VOLUME 87.1 fL (79-99); PLATELET COUNT (AUTO) 258 K/uL (130-400); RED BLOOD CELL COUNT(AUTO) 4.51 MIL/uL (4.00-5.50); RED CELL DISTRIBUTION WIDTH 12.8 % (11.0-15.5); WHITE BLOOD COUNT (AUTO) 10.5 K/uL (4.8-10.8)
[2021-09-20 12:16] LABS: APPEARANCE,URINE Clear (CLEAR); BILIRUBIN,URINE Negative (NEGATIVE); COLOR,URINE Yellow (YELLOW); GLUCOSE, URINE (UA) 500 mg/dL (NEGATIVE); KETONES,URINE Negative (NEGATIVE); LEUKOCYTE ESTERASE ,URINE Trace (NEGATIVE); NITRATE,URINE Negative (NEGATIVE); OCCULT BLOOD,URINE Negative (NEGATIVE); PROTEIN,URINE Negative (NEGATIVE); UROBILINOGEN,URINE 0.2 mg/dL (0.2-1.0)
[2021-09-20 12:21] LABS: INR 0.98 (0.85-1.15); PROTHROMBIN TIME 10.7 SEC (9.6-11.6)
[2021-09-20 12:22] LABS: CREATININE 0.9 mg/dL (0.5-1.5); PARTIAL THROMBOPLASTIN TIME 26.8 SEC (26.3-35.5); POTASSIUM 4.2 mmol/L (3.5-5.1)
[2021-09-20 12:52] LABS: BACTERIA,URINE Rare /HPF (None Seen); RBC,URINE 0-1 /HPF (0-1); SQUAMOUS EPITHELIAL CELL,UR Rare /HPF (0-2); WBC,URINE 0-1 /HPF (0-1)
[~2021-09-22] VITALS: Ht 147.3 cm; Wt 52.2 kg
[2021-09-22] VITALS (9 sets, daily range): BP systolic 112–137; BP diastolic 45–74
[~2021-09-22 05:38] MED LIST: ASPI-1197 PO; CHOL400T4 PO; CLOP75TA14 PO; EMPA10TA PO; EZET10TA48 PO; FAMO40TA75 PO; FISH1CAP27 PO; FURO20TA4 PO; LINA1TAB PO; METO-408 PO; MONT-39 PO; MULT-1378 PO; ROSU20TA31 PO; SERT-439 PO; tylenol PO
[2021-09-22] MEDS ORDERED: 0.9%NACL 1000ML 1,000 ML IV ONE (06:20)
[2021-09-22] MEDS ORDERED: NITROGLYCERIN 50MG VIAL ONE (08:58)
[2021-09-22] MEDS ORDERED: HEPARIN 10,000 UNIT/10ML (1,000 UNIT/ML) VIAL ONE (08:58)
[2021-09-22] MEDS ORDERED: IOHEXOL-350 75 ML VIAL IV ONE (08:58)
[2021-09-22] MEDS ORDERED: SODIUM BICARB 50MEQ 50ML VIAL 50 ML ONE (08:58)
[2021-09-22] MEDS ORDERED: IOHEXOL-350 50ML VIAL IV ONE (08:58)
[2021-09-22] MEDS ORDERED: IOHEXOL 350 MG/ML 100ML INFUS..BTL IV ONE (08:59)
[2021-09-22] MEDS ORDERED: FENTANYL CITRATE PF 50 MCG/1 ML 2ML VIAL ONE (08:59)
[2021-09-22] MEDS ORDERED: MIDAZOLAM HCL 1 MG/ML 2ML VIAL ONE (08:59)
[2021-09-22] MEDS ORDERED: LIDOCAINE HCL 400MG/20ML VIAL ONE (08:59)
[2021-09-22] MEDS ORDERED: ATROPINE 1MG SYG IVP ONE (09:33)
[2021-09-22] MEDS ORDERED: 0.9%NACL 1000ML 1,000 ML IV SCH (10:30)
== END 2021-09-22 13:50 | disposition home or self-care (01) ==
LOC: DAH 05:38
PROVIDERS: ATTEND Internal Medicine Cardiovascular Disease
DX: I25.110 Atherosclerotic heart disease of native coronary artery with unstable angina pectoris (principal); I25.710 Atherosclerosis of autologous vein coronary artery bypass graft(s) with unstable angina pectoris; I10 Essential (primary) hypertension; E66.3 Overweight; I25.2 Old myocardial infarction; G47.30 Sleep apnea, unspecified; E78.5 Hyperlipidemia, unspecified; E11.22 Type 2 diabetes mellitus with diabetic chronic kidney disease; Z98.890 Other specified postprocedural states; Z90.710 Acquired absence of both cervix and uterus; Z90.49 Acquired absence of other specified parts of digestive tract; Z98.891 History of uterine scar from previous surgery; Z82.3 Family history of stroke; Z82.49 Family history of ischemic heart disease and other diseases of the circulatory system; Z83.3 Family history of diabetes mellitus; Z83.438 Family history of other disorder of lipoprotein metabolism and other lipidemia; Z95.5 Presence of coronary angioplasty implant and graft; Z68.24 Body mass index [BMI] 24.0-24.9, adult
CPT/HCPCS: 36415; 71045; 80048; 81001; 82948 ×2; 85025; 85610; 85730; 93005; 93459; A4215; A4216; A4221; A4222; A4223 ×3; A4606; A4663; C1760; C1894 ×2; J1644; J2250; J3010; J3490 ×3; J7030; Q9965; Q9967 ×3; 99156; 99157; J0461